=== PATIENT | male | born 1955 | race Caucasian/White ===

== ENCOUNTER 2016-05-02 17:46 | Emergency (ER) | payer OTHER ==
[2016-05-02] MEDS ORDERED: ONDANSETRON 4 MG TAB.RAPDIS PO ONE ×2 (18:27→22:28)
[2016-05-02] MEDS ORDERED: ASPIRIN 81 MG TABLET, CHEWABLE PO ONE (18:28)
--- NOTE | 2016-05-02 18:29 | ER Document Report ---
ED Medical Screen (RME) - General Stated Complaint: VOMITING Mode of Arrival: Wheelchair Information source: Patient Notes: Patient complains of dizziness and palpitations that started early this afternoon. Patient reports nausea and vomiting times numerous episodes. Patient states while waiting in the lobby he started to develop midsternal chest pain. Patient additionally reports generalized abdominal tenderness. hx: Diabetes, hypertension, gout, MS I have greeted and performed a rapid initial assessment of this patient. A comprehensive ED assessment and evaluation of the patient, analysis of test results and completion of the medical decision making process will be conducted by additional ED providers. TRAVEL OUTSIDE OF THE [place] IN LAST 30 DAYS: No - Related Data Allergies/Adverse Reactions: oxycodone Adverse Reaction (Severe, Verified 05/02/16 18:26) addiction codeine Adverse Reaction (Verified 05/02/16 18:26) Abnormal behavior Past Medical History - Past Medical History Cardiac Medical History: Reports: Hx Hypertension Endocrine Medical History: Reports: Hx Diabetes Mellitus Type 2 Psychiatric Medical History: Denies: Hx Depression Physical Exam - Vital signs Vitals: Temp Pulse Resp BP Pulse Ox 98.3 F 84 16 146/65 H 96 05/02/16 17:57 05/02/16 17:57 05/02/16 17:57 05/02/16 17:57 05/02/16 17:57 - Cardiovascular Rhythm: Regular Heart sounds: S1 appreciated, S2 appreciated Course - Vital Signs Vital signs: Temp Pulse Resp BP Pulse Ox 98.3 F 84 16 146/65 H 96 05/02/16 17:57 05/02/16 17:57 05/02/16 17:57 05/02/16 17:57 05/02/16 17:57
[2016-05-02 19:05] LABS: ABSOLUTE LYMPHOCYTES (AUTO) 1.7 10^3/uL (0.5-4.7); ABSOLUTE MONOCYTES (AUTO) 0.8 10^3/uL (0.1-1.4); ABSOLUTE NEUT (AUTO) 9.2 10^3/uL (1.7-8.2); BASOPHILS % (AUTO) 0.2 % (0-2); EOSINOPHILS % (AUTO) 0.3 % (0-6); HEMATOCRIT 38.5 % (37.9-51.0); HEMOGLOBIN 13.1 g/dL (13.5-17.0); HGB HCT DIFFERENCE 0.8; LYMPHOCYTES % (AUTO) 14.3 % (13-45); MEAN CORPUSCULAR HEMOGLOBIN 30.3 pg (27.0-33.4); MEAN CORPUSCULAR VOLUME 89 fl (80-97); RED BLOOD COUNT 4.32 10^6/uL (4.35-5.55); RED CELL DISTRIBUTION WIDTH 14.3 % (11.5-14.0); SEGMENTED NEUTROPHILS % (AUTO) 78.2 % (42-78); WHITE BLOOD COUNT 11.7 10^3/uL (4.0-10.5)
[2016-05-02 19:28] LABS: ALANINE AMINOTRANSFERASE 68 U/L (21-72); ALKALINE PHOSPHATASE 94 U/L (38-126); ANION GAP 15 (5-19); ASPARTATE AMINO TRANSFERASE 41 U/L (17-59); BILIRUBIN,TOTAL 0.8 mg/dL (0.2-1.3); BLOOD UREA NITROGEN 21 mg/dL (7-20); CALCIUM 10.6 mg/dL (8.4-10.2); CARBON DIOXIDE 30 mmol/L (22-30); CHLORIDE 100 mmol/L (98-107); CREATINE KINASE 164 U/L (55-170); CREATININE RESULT 0.55 mg/dL (0.52-1.25); GLUCOSE 123 mg/dL (75-110); LIPASE 108.8 U/L (23-300); MAGNESIUM 1.6 mg/dL (1.6-2.3); POTASSIUM 4.4 mmol/L (3.6-5.0); TOTAL PROTEIN 8.3 g/dL (6.3-8.2)
[2016-05-02 19:40] LABS: CREATINE KINASE MB 1.04 ng/mL (<4.55); TROPONIN I < 0.012 ng/mL
--- NOTE | 2016-05-02 22:52 | EKG REPORT ---
SEVERITY:- BORDERLINE ECG - SINUS RHYTHM BORDERLINE T ABNORMALITIES, ANT-LAT LEADS : Confirmed by: Pedro Caraballo 02-May-2016 22:50:31
--- NOTE | 2016-05-02 22:58 | ER Document Report ---
ED General - General Chief Complaint: Dizziness Stated Complaint: VOMITING Mode of Arrival: Wheelchair Information source: Patient Notes: Patient presents to the emergency department with complaints of dizziness. Patient reports this morning he opened the front door and felt dizzy. He let dog out the back door and became very dizzy, he had to sit in the chair. He then went to bed, reports he started vomiting. He reports is not feeling well. Patient reports he has history of MS. He reports he has a history of being off balance and dizziness. He reports at first he diagnosed with vertigo before they diagnosed him with MS. Patient reports that when he was sitting in the waiting room he felt like his heart was racing. He denies fever or diarrhea. Denies trauma. Reports he still feels a little bit nauseated but is asking for some cold water. TRAVEL OUTSIDE OF THE [place] IN LAST 30 DAYS: No - HPI Onset: This morning Onset/Duration: Sudden Quality of pain: No pain Severity: None Associated symptoms: Vomiting Exacerbated by: Movement Relieved by: Denies Similar symptoms previously: Yes Recently seen / treated by doctor: No - Related Data Allergies/Adverse Reactions: oxycodone Adverse Reaction (Severe, Verified 05/02/16 18:26) addiction codeine Adverse Reaction (Verified 05/02/16 18:26) Abnormal behavior Past Medical History - General Information source: Patient - Social History Smoking Status: Former Smoker Chew tobacco use (# tins/day): No Frequency of alcohol use: None Drug Abuse: None Family History: Reviewed & Not Pertinent Patient has suicidal ideation: No Patient has homicidal ideation: No - Past Medical History Cardiac Medical History: Reports: Hx Hypertension Endocrine Medical History: Reports: Hx Diabetes Mellitus Type 2, Hx Hypothyroidism Renal/ Medical History: Denies: Hx Peritoneal Dialysis Musculoskeltal Medical History: Reports Hx Gout, Reports Hx Multiple Sclerosis Psychiatric Medical History: Denies: Hx Depression Past Surgical History: Reports: Hx Orthopedic Surgery Review of Systems - Review of Systems Notes: Review HPI for review of systems., All other systems negative Physical Exam - Vital signs Vitals: Temp Pulse Resp BP Pulse Ox 98.3 F 84 16 146/65 H 96 05/02/16 17:57 05/02/16 17:57 05/02/16 17:57 05/02/16 17:57 05/02/16 17:57 - Notes Notes: PHYSICAL EXAMINATION: GENERAL: nontoxic looking, anxious HEAD: Atraumatic, normocephalic. EYES: Pupils equal round and reactive to light, extraocular movements intact, sclera anicteric, conjunctiva are normal. ENT: nares patent, oropharynx clear without exudates. Moist mucous membranes. NECK: Normal range of motion, supple without lymphadenopathy LUNGS: CTAB and equal. No wheezes rales or rhonchi. HEART: Regular rate and rhythm without murmurs ABDOMEN: Soft, no tenderness. No guarding, no rebound EXTREMITIES: Normal range of motion, no pitting edema. No cyanosis. NEUROLOGICAL: Cranial nerves grossly intact. Normal sensory/motor exams. PSYCH: Normal mood, normal affect. SKIN: Warm, Dry, normal turgor, no rashes or lesions noted Course - Re-evaluation Re-evalutation: I have consulted the attending provider Dr Lr per [facility] guidelines, reviewed patient c/o, EKG, history reviewed. BUN 21, SP. [place] 1.028, advised IV fluids valium 05/03/16 02:02 Reports he feels much better. No further vomiting since arrival. Patient ambulated around the emergency department without complaints of dizziness. Denies chest pain, denies palpitations. negative CE, EKG SR. Patient ambulated around the ED without c/o dizziness. I consulted Dr Lr, she agrees with discharge. Patient was instructed on discharge. He was instructed to [facility]. He was also instructed to return to the emergency department for concerns chest pain return or vomiting. He verbalized understanding - Vital Signs Vital signs: Temp Pulse Resp BP Pulse Ox 98.6 F 78 16 147/59 H 95 05/03/16 02:22 05/03/16 02:22 05/03/16 02:22 05/03/16 02:22 05/03/16 02:22 - Laboratory Result Diagrams: 05/02/16 18:50 05/02/16 18:50 Laboratory results interpreted by me: 05/02/16 05/02/16 05/02/16 18:50 18:50 23:15 WBC 11.7 H RBC 4.32 L Hgb 13.1 L RDW 14.3 H Seg Neutrophils % 78.2 H Absolute Neutrophils 9.2 H BUN 21 H Glucose 123 H Calcium 10.6 H Total Protein 8.3 H Urine Ketones TRACE H - Diagnostic Test Radiology reviewed: Image reviewed, Reports reviewed - IMPRESSION: No significant interval change. No acute findings. Other findings as noted above - EKG Interpretation by Me EKG shows normal: Sinus rhythm - x 2 ekgs When compared to previous EKG there are: No significant change Discharge - Discharge Clinical Impression: Dizziness, Elevated blood pressure reading Vomiting Qualifiers: Vomiting type: unspecified Vomiting Intractability: non-intractable Nausea presence: unspecified Qualified Code(s): R11.10 - Vomiting, unspecified Condition: Stable Disposition: HOME, SELF-CARE Instructions: Antinausea Medication ([facility]), Dizziness ([facility]), Intravenous (IV) Fluids ([facility]), Vomiting ([facility]) Additional Instructions: *You have been evaluated for dizziness, nausea/vomiting *Take medication as prescribed for nausea *Ensure adequate fluid intake as discussed to prevent dehydrationone *[facility], within one week for recheck *Return to ED for worsening condition, changes, needs Forms: Elevated Blood Pressure
[2016-05-02 23:39] LABS: APPEARANCE,URINE SLIGHTLY-CLOUDY; BILIRUBIN,URINE NEGATIVE (NEGATIVE); GLUCOSE, URINE NEGATIVE (NEGATIVE); KETONES,URINE TRACE mg/dL (NEGATIVE); LEUKOCYTE ESTERASE,URINE NEGATIVE (NEGATIVE); NITRITE,URINE NEGATIVE (NEGATIVE); PROTEIN,URINE NEGATIVE (NEGATIVE); URINE SPECIFIC GRAVITY 1.028; UROBILINOGEN,URINE NEGATIVE mg/dL (<2.0)
[2016-05-02] MEDS ORDERED: MECLIZINE HCL 25 MG TABLET PO ONE (23:55)
[2016-05-02] MEDS ORDERED: DIAZEPAM 5 MG TABLET PO ONE (23:58)
[2016-05-03] MEDS ORDERED: NORMAL SALINE 1000 ML 1,000 ML IV ONE (00:13)
[2016-05-03] MEDS ORDERED: ONDANSETRON ODT 4 MG TAB (6 TAB/DSPK) PO PRN (02:05)
[2016-05-03 02:37] VITALS: BP 147/59
--- NOTE | 2016-05-03 09:37 | EKG REPORT ---
SEVERITY:- ABNORMAL ECG - SINUS RHYTHM NONSPECIFIC T ABNORMALITIES, LATERAL LEADS : Confirmed by: Pedro Caraballo 03-May-2016 09:37:03
== END 2016-05-03 02:40 | disposition home or self-care (01) ==
LOC: ER 17:46
DX: R42 Dizziness and giddiness (principal); R03.0 Elevated blood-pressure reading, without diagnosis of hypertension; R11.10 Vomiting, unspecified; G35 Multiple sclerosis; Z87.891 Personal history of nicotine dependence
CPT/HCPCS: 93005 ×2; 99284; 36415; 82553; 82550; 83690; 83735; 84443; 85025; 80053; 81001; 84484; 87804; 71020; 93010 ×2; S0119

== ENCOUNTER 2016-12-07 07:30 | Day surgery (SDC) | payer OTHER ==
[2016-12-07 08:17] LABS: HEMATOCRIT 35.4 % (37.9-51.0); HEMOGLOBIN 12.3 g/dL (13.5-17.0); HGB HCT DIFFERENCE 1.5; MEAN CORPUSCULAR HEMOGLOBIN 31.2 pg (27.0-33.4); MEAN CORPUSCULAR HGB CONC 34.7 g/dL (32.0-36.0); MEAN CORPUSCULAR VOLUME 90 fl (80-97); RED BLOOD COUNT 3.94 10^6/uL (4.35-5.55); RED CELL DISTRIBUTION WIDTH 14.1 % (11.5-14.0); WHITE BLOOD COUNT 10.3 10^3/uL (4.0-10.5)
[2016-12-07 08:33] LABS: BLOOD UREA NITROGEN 25 mg/dL (7-20); CREATININE RESULT 0.74 mg/dL (0.52-1.25); GLUCOSE 145 mg/dL (75-110); POTASSIUM 4.5 mmol/L (3.6-5.0)
[2016-12-07 09:25] LABS: PROTHROMBIN TIME 12.9 SEC (11.4-15.4)
[2016-12-07 09:26] LABS: PARTIAL THROMBOPLASTIN TIME 36.5 SEC (23.5-35.8)
--- NOTE | 2016-12-07 11:14 | RADIOLOGY REPORT (SQ) ---
EXAM DESCRIPTION: LUMBAR PUNCTURE; FLUORO/NEEDLE PLACEMENT/SPINE COMPLETED DATE/TIME: 12/07/2016 10:50 am REASON FOR STUDY: MS G35 MULTIPLE SCLEROSIS COMPARISON: None. FLUOROSCOPY TIME: 9 seconds 1 digital radiographic image saved to PACS. TECHNIQUE: Fluoroscopic guided lumbar puncture. LIMITATIONS: None. PROCEDURE: After written consent and assessment were obtained, the patient was brought into the fluo roscopy room and placed prone on the table. The patient's lower back was prepped in a sterile fashio n and an entry site was selected under live fluoroscopic guidance. The entry site was anesthetized wi th 4.5 mL of 1% lidocaine. A 20 gauge needle was advanced through the skin and into the thecal sac at the right paracentral L2-3 level. After approximately 8 ml was drained, the needle was removed and a sterile bandage was placed of the site. Specimens were sent to the lab for testing. A fluoroscopic spot image was saved to PACS confirming level access. FINDINGS: Clear CSF Opening pressure 17 cm of water. Closing pressure 13 cm of water. IMPRESSION: Lumbar puncture under fluoroscopy. No immediate complication. COMMENT: Patient medication list reviewed: Yes- Quality ID# [id number]:Eligible professional attests to doc umenting in the medical record they obtained, updated, or reviewed the patient's current medications. . Quality ID 145: Final reports for procedures using fluoroscopy that document radiation exposure jossie mohan, or exposure time and number of fluorographic images (if radiation exposure indices are not avail able) TECHNICAL DOCUMENTATION: JOB ID: [id number] [employer]- All Rights Reserved
[2016-12-07 12:08] LABS: GLUCOSE,CSF 79 mg/dL (40-70)
[2016-12-07 12:23] LABS: APPEARANCE ALL TUBES CLEAR
[2016-12-07 12:24] LABS: RBC AVERAGE 117.5; RBC DILUENT USED NONE USED; RBC SIDE 1 124; RBC SIDE 2 111
[2016-12-07 12:25] LABS: RBC DILUTION FACTOR 1
[2016-12-07 12:26] LABS: TOTAL RBC SQUARES COUNTED 75
[2016-12-07 12:30] LABS: WHITE BLOOD CELL,CSF 5 /uL (0-5)
[2016-12-07 12:40] VITALS: BP 124/63
[2016-12-11 16:39] LABS: ALBUMIN CSF 48 mg/dL (11-48); ALBUMIN SERUM 4.2 g/dL (3.6-4.8); CSF IGG INDEX 0.5 (0.0-0.7); IGG SYNTHESIS RATE CSF -2.6 mg/day (-9.9 TO +3.3); IGG/ALBUMIN RATIO CSF 0.09 (0.00-0.25); IMMUNOGLOBULIN G CSF 4.5 mg/dL (0.0-8.6); IMMUNOGLOBULIN G SERUM 874 mg/dL (700-1600)
[2016-12-12 08:08] LABS: CSF/SERUM ALBUMIN INDEX 11 (0-8)
== END 2016-12-07 12:35 | disposition home or self-care (01) ==
LOC: RAD 07:30
PROVIDERS: ATTEND Specialist
PROC: 009U3ZX Drainage of Spinal Canal, Percutaneous Approach, Diagnostic (ICD-10-PCS; principal; 2016-12-07)
DX: G35 Multiple sclerosis (principal)
CPT/HCPCS: 36415; 62270; 77003; 82565; 82784; 82945; 82947; 83916; 84132; 84157; 84520; 85027; 85610; 85730; 87070; 87205; 89050

== ENCOUNTER 2017-05-17 11:26 | Inpatient (IN) | payer OTHER ==
--- NOTE | 2017-05-17 13:15 | ER Document Report ---
ED Medical Screen (RME) - General Chief Complaint: Weakness Stated Complaint: WEAKNESS Time Seen by Provider: 05/17/17 13:11 Mode of Arrival: Wheelchair Information source: Patient Notes: 61-year-old male history of multiple sclerosis presents with complaints of weakness in the lower extremities inability to ambulate over the past few days patient does have a mechanical wheelchair but notes he has fallen out of it recently I have greeted and performed a rapid initial assessment of this patient. A comprehensive ED assessment and evaluation of the patient, analysis of test results and completion of the medical decision making process will be conducted by additional ED providers. PHYSICAL EXAMINATION: GENERAL: Well-appearing, well-nourished and in no acute distress. HEAD: Atraumatic, normocephalic. EYES: Pupils equal round extraocular movements intact, conjunctiva are normal. ENT: Nares patent NECK: Normal range of motion LUNGS: No respiratory distress Musculoskeletal: Normal range of motion NEUROLOGICAL: Normal speech, PSYCH: Normal mood, normal affect. SKIN: Warm, Dry, normal turgor, no rashes or lesions noted. TRAVEL OUTSIDE OF THE [place] IN LAST 30 DAYS: No - Related Data Allergies/Adverse Reactions: oxycodone Adverse Reaction (Severe, Verified 05/17/17 13:05) addiction codeine Adverse Reaction (Verified 05/17/17 13:05) Abnormal behavior Past Medical History - Social History Chew tobacco use (# tins/day): No Frequency of alcohol use: None Drug Abuse: None - Past Medical History Cardiac Medical History: Reports: Hx Hypertension - ON MEDS Denies: Hx Coronary Artery Disease, Hx Heart Attack Pulmonary Medical History: Reports: Hx COPD - POSSIBLY, PT UNSURE Denies: Hx Asthma, Hx Bronchitis, Hx Pneumonia Neurological Medical History: Denies: Hx Cerebrovascular Accident, Hx Seizures Endocrine Medical History: Reports: Hx Diabetes Mellitus Type 2, Hx Hypothyroidism Renal/ Medical History: Denies: Hx Peritoneal Dialysis Musculoskeltal Medical History: Reports Hx Arthritis - NECK, Reports Hx Gout, Reports Hx Multiple Sclerosis Psychiatric Medical History: Denies: Hx Depression Past Surgical History: Reports: Hx Orthopedic Surgery - Immunizations Hx Diphtheria, Pertussis, Tetanus Vaccination: No History of Influenza Vaccine for 11/2016 - 04/2017 Season: No Physical Exam - Vital signs Vitals: Temp Pulse BP Pulse Ox 98.2 F 74 107/60 92 05/17/17 11:41 05/17/17 11:41 05/17/17 11:41 05/17/17 11:41 Course - Vital Signs Vital signs: Temp Pulse Resp BP Pulse Ox 98.2 F 74 107/60 92 05/17/17 11:41 05/17/17 11:41 05/17/17 11:41 05/17/17 11:41
[2017-05-17 13:46] LABS: ABSOLUTE BASOPHILS # (AUTO) 0.1 10^3/uL (0.0-0.2); ABSOLUTE EOSINOPHILS # (AUTO) 0.1 10^3/uL (0.0-0.6); ABSOLUTE LYMPHOCYTES (AUTO) 2.2 10^3/uL (0.5-4.7); ABSOLUTE NEUT (AUTO) 9.8 10^3/uL (1.7-8.2); BASOPHILS % (AUTO) 0.4 % (0-2); EOSINOPHILS % (AUTO) 0.7 % (0-6); HEMATOCRIT 39.4 % (37.9-51.0); HEMOGLOBIN 13.3 g/dL (13.5-17.0); LYMPHOCYTES % (AUTO) 16.8 % (13-45); MEAN CORPUSCULAR HEMOGLOBIN 30.2 pg (27.0-33.4); MEAN CORPUSCULAR HGB CONC 33.7 g/dL (32.0-36.0); MEAN CORPUSCULAR VOLUME 90 fl (80-97); MONOCYTES % (AUTO) 7.4 % (3-13); PLATELET COUNT 373 10^3/uL (150-450); RED CELL DISTRIBUTION WIDTH 14.5 % (11.5-14.0); SEGMENTED NEUTROPHILS % (AUTO) 74.7 % (42-78); TOTAL CELLS COUNTED % (AUTO) 100 %; WHITE BLOOD COUNT 13.1 10^3/uL (4.0-10.5)
[2017-05-17 14:12] LABS: ALANINE AMINOTRANSFERASE 45 U/L (21-72); ALBUMIN 5.1 g/dL (3.5-5.0); ALKALINE PHOSPHATASE 99 U/L (38-126); ANION GAP 13 (5-19); ASPARTATE AMINO TRANSFERASE 30 U/L (17-59); BILIRUBIN,DIRECT 0.5 mg/dL (0.0-0.4); BILIRUBIN,TOTAL 0.6 mg/dL (0.2-1.3); BLOOD UREA NITROGEN 29 mg/dL (7-20); CALCIUM 10.6 mg/dL (8.4-10.2); CARBON DIOXIDE 31 mmol/L (22-30); CHLORIDE 99 mmol/L (98-107); GLUCOSE 152 mg/dL (75-110); POTASSIUM 5.1 mmol/L (3.6-5.0); SODIUM 143.3 mmol/L (137-145); TOTAL PROTEIN 8.8 g/dL (6.3-8.2)
--- NOTE | 2017-05-17 15:50 | RADIOLOGY REPORT (SQ) ---
EXAM DESCRIPTION: KNEE RIGHT 3 VIEWS COMPLETED DATE/TIME: 05/17/2017 3:42 pm REASON FOR STUDY: FALL, PAIN COMPARISON: None. NUMBER OF VIEWS: Three views. TECHNIQUE: AP, lateral, and sunrise patella radiographic images acquired of the right knee. LIMITATIONS: None. FINDINGS: MINERALIZATION: Normal. BONES: No acute fracture or dislocation. No worrisome bone lesions. JOINT: Meniscal calcifications are present. There are tiny posterior spurs on the patella. There is no significant joint effusion. SOFT TISSUES: No soft tissue swelling. No radio-opaque foreign body. OTHER: No other significant finding. IMPRESSION: Patellofemoral degenerative joint changes. TECHNICAL DOCUMENTATION: JOB ID: [id number] [employer]- All Rights Reserved Reading location - IP/workstation name: [email or web address]
--- NOTE | 2017-05-17 15:52 | RADIOLOGY REPORT (SQ) ---
EXAM DESCRIPTION: KNEE LEFT 3 VIEWS COMPLETED DATE/TIME: 05/17/2017 3:42 pm REASON FOR STUDY: FALL, PAIN COMPARISON: None. NUMBER OF VIEWS: Three views. TECHNIQUE: AP, lateral, and sunrise patella radiographic images acquired of the left knee. LIMITATIONS: None. FINDINGS: MINERALIZATION: Normal. BONES: No acute fracture or dislocation. No worrisome bone lesions. JOINT: No effusion. SOFT TISSUES: No soft tissue swelling. No radio-opaque foreign body. OTHER: No other significant finding. IMPRESSION: NEGATIVE STUDY OF THE LEFT KNEE. NO RADIOGRAPHIC EVIDENCE OF ACUTE INJURY. TECHNICAL DOCUMENTATION: JOB ID: [id number] [employer]- All Rights Reserved Reading location - IP/workstation name: [email or web address]
[2017-05-17] MEDS ORDERED: METHYLPREDNISOLONE INJ 1000 MG VIAL IV ONE (15:55)
--- NOTE | 2017-05-17 15:59 | ER Document Report ---
ED Dizziness/Weakness - General Chief Complaint: Weakness Stated Complaint: WEAKNESS, REPEATED FALLS Time Seen by Provider: 05/17/17 13:11 Mode of Arrival: Wheelchair Information source: Patient TRAVEL OUTSIDE OF THE [place] IN LAST 30 DAYS: No - HPI Patient complains to provider of: Weakness, Other - "LEGS GIVE OUT" Onset: Other - SEVERAL DAYS Onset/Duration: Gradual Quality of pain: No pain - NOTHING UNUSUAL Severity: Moderate Context: Other - MULTIPLE SCLEROSIS, CHRONIC RELPSING Associated symptoms: Loss of sensation, Recent fall - MULTIPLE. denies: Almost fainted, Fainted, Headache, Nausea, Short of breath, Vertigo Baseline gait: Uses a cane, Uses a walker, Walks only w/ assistance - HAS POWER CHAIR. - Related Data Allergies/Adverse Reactions: oxycodone Adverse Reaction (Severe, Verified 05/17/17 13:05) addiction codeine Adverse Reaction (Verified 05/17/17 13:05) Abnormal behavior Past Medical History - General Information source: Patient - Social History Smoking Status: Former Smoker Chew tobacco use (# tins/day): No Frequency of alcohol use: None Drug Abuse: None Lives with: Alone - DAUGHTER LIVES NEARBY Family History: Reviewed & Not Pertinent Patient has suicidal ideation: No Patient has homicidal ideation: No - Past Medical History Cardiac Medical History: Reports: Hx Hypertension - ON MEDS Denies: Hx Coronary Artery Disease, Hx Heart Attack Pulmonary Medical History: Reports: Hx COPD - POSSIBLY, PT UNSURE Denies: Hx Asthma, Hx Bronchitis, Hx Pneumonia Neurological Medical History: Reports: Other - MULTIPLE SCLEROSIS. Denies: Hx Cerebrovascular Accident, Hx Seizures Endocrine Medical History: Reports: Hx Diabetes Mellitus Type 2, Hx Hypothyroidism Renal/ Medical History: Reports: None. Denies: Hx Peritoneal Dialysis Malignancy Medical History: Reports None GI Medical History: Reports: None Musculoskeltal Medical History: Reports Hx Arthritis - NECK, Reports Hx Gout, Reports Hx Multiple Sclerosis Psychiatric Medical History: Reports: None Denies: Hx Depression Past Surgical History: Reports: Hx Orthopedic Surgery - Immunizations Hx Diphtheria, Pertussis, Tetanus Vaccination: No Review of Systems - Review of Systems Constitutional: Weakness EENT: No symptoms reported Cardiovascular: No symptoms reported Respiratory: No symptoms reported Gastrointestinal: No symptoms reported Genitourinary: No symptoms reported. denies: Incontinence, Retention Musculoskeletal: See HPI Skin: No symptoms reported Neurological/Psychological: See HPI Physical Exam - Vital signs Vitals: Temp Pulse BP Pulse Ox 98.2 F 74 107/60 92 05/17/17 11:41 05/17/17 11:41 05/17/17 11:41 05/17/17 11:41 Interpretation: Normal - General General appearance: Appears well, Alert In distress: None - HEENT Head: Normocephalic Eyes: Normal Conjunctiva: Normal Ears: Normal Nasal: Normal Mouth/Lips: Normal Mucous membranes: Normal - Respiratory Respiratory status: No respiratory distress Breath sounds: Normal - Cardiovascular Rhythm: Regular Heart sounds: Normal auscultation Murmur: No - Abdominal Inspection: Obese Distension: No distension - Extremities General upper extremity: Normal inspection General lower extremity: Normal inspection Knee: Tender - DIFFUSELY, MORE OVER PATELLA, WORSE ON RIGHT, Patellar tendon intact. No: Drawer's test instability, Instability, Joint effusion, Laxity with valgus stress, Laxity with varus stress - Neurological Neuro grossly intact: Yes Cognition: Normal Orientation: AAOx4 - Psychological Associated symptoms: Normal affect, Normal mood - Skin Skin Temperature: Warm Skin Moisture: Dry Skin Color: Normal Skin Turgor: Elastic Course - Vital Signs Vital signs: Temp Pulse Resp BP Pulse Ox 98.2 F 66 16 123/76 98 05/17/17 16:56 05/17/17 16:56 05/17/17 16:56 05/17/17 16:56 05/17/17 16:56 - Laboratory Result Diagrams: 05/17/17 13:30 05/17/17 13:30 Laboratory results interpreted by me: 05/17/17 05/17/17 05/17/17 13:30 13:30 13:30 WBC 13.1 H Hgb 13.3 L RDW 14.5 H Absolute Neutrophils 9.8 H ESR 99 H Potassium 5.1 H Carbon Dioxide 31 H BUN 29 H Glucose 152 H Calcium 10.6 H Direct Bilirubin 0.5 H Total Protein 8.8 H Albumin 5.1 H - Diagnostic Test Radiology reviewed: Image reviewed, Reports reviewed - Consults DR. HEMPHILL Time consulted: 17:32 Consulted provider: will come to ER Discharge - Discharge Clinical Impression: Multiple sclerosis exacerbation, Diabetes mellitus type 2 in obese Fall at home Qualifiers: Encounter type: initial encounter Qualified Code(s): W19.XXXA - Unspecified fall, initial encounter; Y92.009 - Unspecified place in unspecified non- institutional (private) residence as the place of occurrence of the external cause; Y92.009 - Unspecified place in unspecified non-institutional (private) residence as the place of occurrence of the external cause Contusion of knee Qualifiers: Encounter type: initial encounter Laterality: unspecified laterality Qualified Code(s): S80.00XA - Contusion of unspecified knee, initial encounter Disposition: ADMITTED INPATIENT Admitting Provider: Hospitalist Unit Admitted: Telemetry
[2017-05-17 17:10] LABS: APPEARANCE,URINE SLIGHTLY-CLOUDY; BILIRUBIN,URINE NEGATIVE (NEGATIVE); COLOR,URINE YELLOW; GLUCOSE, URINE NEGATIVE (NEGATIVE); KETONES,URINE NEGATIVE (NEGATIVE); LEUKOCYTE ESTERASE,URINE NEGATIVE (NEGATIVE); NITRITE,URINE NEGATIVE (NEGATIVE); PROTEIN,URINE NEGATIVE (NEGATIVE); URINE SPECIFIC GRAVITY 1.024; UROBILINOGEN,URINE NEGATIVE mg/dL (<2.0)
[2017-05-17] MEDS ORDERED: ACETAMINOPHEN 325 MG TABLET PO PRN (17:53)
[2017-05-17] MEDS ORDERED: ONDANSETRON HCL INJ/PF 4 MG/2 ML SDV IV PRN (17:53)
[2017-05-17] MEDS ORDERED: GLUCAGON,HUMAN RECOMB 1 MG INJ IM PRN (17:58)
[2017-05-17] MEDS ORDERED: DEXTROSE 50%-WATER 25 GM/50 ML DISP.SYRIN IV PRN ×2 (17:58)
[2017-05-17] MEDS ORDERED: DEXTROSE 40% GEL 15 GM TUBE PO PRN ×2 (17:58)
--- NOTE | 2017-05-17 18:14 | PDOC H&P ---
History of Present Illness Admission Date/PCP: 05/17/2017 Patient complains of: Falling History of Present Illness: NIMCO WALKER is a 61 year old male presents to hospital with complaint of falling. Patient states he has been weak for the last few days. Patient states that he does have MS and feels as though he is potentially having a flare. Patient states he has noticed that his vision has changed he has had some difficulty with speaking. Patient states that his daughter has been noticing just with speech. Patient reports that he has been falling quite a bit at home. Patient states he has fallen 8 times. Patient states that this is abnormal for him. Past Medical History Cardiac Medical History: Reports: Hypertension - ON MEDS Denies: Coronary Artery Disease, Myocardial Infarction Pulmonary Medical History: Reports: Chronic Obstructive Pulmonary Disease (COPD ) - POSSIBLY, PT UNSURE Denies: Asthma, Bronchitis, Pneumonia Neurological Medical History: Reports: Other - MULTIPLE SCLEROSIS Denies: Seizures Endocrine Medical History: Reports: Diabetes Mellitus Type 2, Hypothyroidism Renal/ Medical History: Reports: None Malignancy Medical History: Reports: None GI Medical History: Reports: None Musculoskeltal Medical History: Reports: Arthritis - NECK, Gout Psychiatric Medical History: Reports: None Denies: Depression Hematology: Reports: Anemia Past Surgical History Past Surgical History: Reports: Orthopedic Surgery Social History Lives with: Alone - DAUGHTER LIVES NEARBY Smoking Status: Former Smoker Frequency of Alcohol Use: Rare Hx Recreational Drug Use: No Drugs: None Hx Prescription Drug Abuse: No - Advance Directive Resuscitation Status: Full Code Family History Family History: Reviewed & Not Pertinent Parental Family History Reviewed: Yes Children Family History Reviewed: Yes Sibling(s) Family History Reviewed.: Yes Medication/Allergy Home Medications: Aspirin [Aspirin EC] 162 mg PO BID 09/28/15 Gabapentin 1,600 mg PO QHS 09/28/15 Hydrocodone/Acetaminophen [Hydrocodone-Acetamin 10-325 mg] 1 each PO QIDP PRN Lisinopril/Hydrochlorothiazide [Lisinopril-Hctz 20-12.5 mg Tab] 1 each PO DAILY 09/28/15 Metformin HCl 1,000 mg PO BID 09/28/15 Metoprolol Tartrate [Lopressor] 50 mg PO BID 09/28/15 Indomethacin [Indocin 50 mg Capsule] 50 mg PO Q8 PRN #30 capsule 10/03/15 Levothyroxine Sodium [Synthroid 0.15 mg Tablet] 0.15 mg PO DAILY@0600 #30 tablet 10/03/15 Methocarbamol 1,500 mg PO QHS 12/06/16 Allergies/Adverse Reactions: oxycodone Adverse Reaction (Severe, Verified 05/17/17 13:05) addiction codeine Adverse Reaction (Verified 05/17/17 13:05) Abnormal behavior Review of Systems Constitutional: PRESENT: weakness. ABSENT: chills, fever(s), headache(s), weight gain, weight loss Eyes: ABSENT: visual disturbances Ears: ABSENT: hearing changes Cardiovascular: ABSENT: chest pain, dyspnea on exertion, edema, orthropnea, palpitations Respiratory: ABSENT: cough, hemoptysis Gastrointestinal: ABSENT: abdominal pain, constipation, diarrhea, hematemesis, hematochezia, nausea, vomiting Genitourinary: ABSENT: dysuria, hematuria Musculoskeletal: PRESENT: muscle weakness Neurological: PRESENT: focal weakness, numbness, weakness Psychiatric: ABSENT: anxiety, depression, homidical ideation, suicidal ideation Endocrine: ABSENT: cold intolerance, heat intolerance, polydipsia, polyuria Hematologic/Lymphatic: ABSENT: easy bleeding, easy bruising Physical Exam Vital Signs: Temp Pulse Resp BP Pulse Ox 98.2 F 66 16 123/76 98 05/17/17 16:56 05/17/17 16:56 05/17/17 16:56 05/17/17 16:56 05/17/17 16:56 Intake & Output 05/16/17 05/17/17 05/18/17 06:59 06:59 06:59 Weight 113.398 kg General appearance: PRESENT: no acute distress, morbidly obese, well-developed, well-nourished Head exam: PRESENT: atraumatic, normocephalic Eye exam: PRESENT: conjunctiva pink, EOMI. ABSENT: scleral icterus Ear exam: PRESENT: normal external ear exam Mouth exam: PRESENT: moist, tongue midline Neck exam: ABSENT: carotid bruit, JVD, lymphadenopathy, thyromegaly Respiratory exam: PRESENT: clear to auscultation gary. ABSENT: rales, rhonchi, wheezes Cardiovascular exam: PRESENT: RRR. ABSENT: diastolic murmur, rubs, systolic murmur Pulses: PRESENT: normal dorsalis pedis pul Vascular exam: PRESENT: normal capillary refill GI/Abdominal exam: PRESENT: normal bowel sounds, soft. ABSENT: distended, guarding, mass, organolmegaly, rebound, tenderness Rectal exam: PRESENT: deferred Extremities exam: PRESENT: full ROM. ABSENT: calf tenderness, clubbing, pedal edema Musculoskeletal exam: PRESENT: full ROM, other - + bilateral knee tenderness to palpation. Neurological exam: PRESENT: alert, awake, oriented to person, oriented to place , oriented to time, oriented to situation, CN II-XII grossly intact. ABSENT: motor sensory deficit Psychiatric exam: PRESENT: appropriate affect, normal mood. ABSENT: homicidal ideation, suicidal ideation Skin exam: PRESENT: dry, intact, warm. ABSENT: cyanosis, rash Results Laboratory Results: 05/17/17 13:30 05/17/17 13:30 05/17/17 05/17/17 05/17/17 13:30 13:30 16:35 WBC 13.1 H RBC 4.40 Hgb 13.3 L Hct 39.4 MCV 90 MCH 30.2 MCHC 33.7 RDW 14.5 H Plt Count 373 Seg Neutrophils % 74.7 Lymphocytes % 16.8 Monocytes % 7.4 Eosinophils % 0.7 Basophils % 0.4 Absolute Neutrophils 9.8 H Absolute Lymphocytes 2.2 Absolute Monocytes 1.0 Absolute Eosinophils 0.1 Absolute Basophils 0.1 Sodium 143.3 Potassium 5.1 H Chloride 99 Carbon Dioxide 31 H Anion Gap 13 BUN 29 H Creatinine 0.78 Est GFR ( Amer) > 60 Est GFR (Non-Af Amer) > 60 Glucose 152 H Calcium 10.6 H Total Bilirubin 0.6 AST 30 ALT 45 Alkaline Phosphatase 99 Total Protein 8.8 H Albumin 5.1 H Urine Color YELLOW Urine Appearance SLIGHTLY-CLOUDY Urine pH 6.0 Ur Specific [place] 1.024 Urine Protein NEGATIVE Urine Glucose (UA) NEGATIVE Urine Ketones NEGATIVE Urine Blood NEGATIVE Urine Nitrite NEGATIVE Ur Leukocyte Esterase NEGATIVE Urine WBC (Auto) 3 Urine RBC (Auto) 3 Impressions: Knee X-Ray 05/17/17 14:49 IMPRESSION: NEGATIVE STUDY OF THE LEFT KNEE. NO RADIOGRAPHIC EVIDENCE OF ACUTE INJURY. Assessment & Plan - Diagnosis (1) Multiple sclerosis Is this a current diagnosis for this admission?: Yes Plan: Presumed acute MS flare: We will place patient on 1000mg of methylprednisolone. Will obtain MRI of brain with contrast. (2) Debility Is this a current diagnosis for this admission?: Yes Plan: Most likely related to MS: We will have PT OT evaluate patient and assess needs for dyspnea home. (3) Fall Is this a current diagnosis for this admission?: Yes Plan: We will have PT OT evaluate patient and needs for home. (4) Diabetes mellitus type 2 in obese Is this a current diagnosis for this admission?: Yes Plan: We will place patient on sliding scale insulin. Will check hemoglobin A1c. (5) HTN (hypertension) Is this a current diagnosis for this admission?: Yes Plan: We will resume home medications once medications have been verified. (6) Hypothyroid Is this a current diagnosis for this admission?: Yes Plan: We will continue Synthroid once medications have been verified. (7) Knee pain, bilateral Qualifiers: Chronicity: acute Qualified Code(s): M25.561 - Pain in right knee; M25.562 - Pain in left knee; M25.562 - Pain in left knee Is this a current diagnosis for this admission?: Yes Plan: Secondary to falls: Patient has had x-rays of knees that demonstrate no evidence of fracture. Will provide supportive care for now. (8) Morbid obesity Is this a current diagnosis for this admission?: Yes Plan: Encourage dietary changes (9) DVT prophylaxis Is this a current diagnosis for this admission?: Yes Plan: SCDs - Time Time Spent: 30 to 50 Minutes
--- NOTE | 2017-05-17 18:43 | RADIOLOGY REPORT (SQ) ---
EXAM DESCRIPTION: CT HEAD WITHOUT COMPLETED DATE/TIME: 05/17/2017 6:31 pm REASON FOR STUDY: head trauma COMPARISON: None. TECHNIQUE: Axial images acquired through the brain without intravenous contrast. Images reviewed wi th bone, brain and subdural windows. Images stored on PACS. All CT scanners at this facility use dose modulation, iterative reconstruction, and/or weight based d osing when appropriate to reduce radiation dose to as low as reasonably achievable (ALARA). [facility]: Dose Right [facility]: CareDose [facility]: Dose Right [facility]: Teradose 4D [facility]: SozializeMe RADIATION DOSE: CT Rad equipment meets quality standard of care and radiation dose reduction techniq ues were employed. CTDIvol: 64.6 mGy. DLP: 1163 mGy-cm. mGy. LIMITATIONS: None. FINDINGS: VENTRICLES: Normal size and contour. CEREBRUM: No masses. No hemorrhage. No midline shift. No evidence for acute infarction. Normal gra y/white matter differentiation. No areas of low density in the white matter. CEREBELLUM: No masses. No hemorrhage. No alteration of density. No evidence for acute infarction. EXTRAAXIAL SPACES: No fluid collections. No masses. ORBITS AND GLOBE: No intra- or extraconal masses. Normal contour of globe without masses. CALVARIUM: No fracture. PARANASAL SINUSES: No fluid or mucosal thickening. SOFT TISSUES: No mass or hematoma. OTHER: No other significant finding. IMPRESSION: NORMAL BRAIN CT WITHOUT CONTRAST. EVIDENCE OF ACUTE STROKE: NO. COMMENT: Quality ID # [id number]: Final reports with documentation of one or more dose reduction techniques (e.g., Automated exposure control, adjustment of the mA and/or kV according to patient size, use of iterative reconstruction technique) TECHNICAL DOCUMENTATION: JOB ID: [id number] [employer]- All Rights Reserved Reading location - IP/workstation name: [email or web address]
[2017-05-17] MEDS: RINGERS SOLUTION,LACTATED 1,000 ML IV PRN (19:26)
[2017-05-17] MEDS ORDERED: GABAPENTIN 400 MG CAPSULE PO ONE (22:45)
[2017-05-17] MEDS ORDERED: METHOCARBAMOL 500 MG TABLET PO ONE (22:45)
[2017-05-17] MEDS: HYDROCODONE/ACETAMINOPHEN 10-325 MG TABLET PO PRN (23:05)
[2017-05-18] MEDS: LANSOPRAZOLE 30 MG TAB.RAP.DR PO SCH (05:16)
[2017-05-18 07:34] LABS: ABSOLUTE LYMPHOCYTES (AUTO) 0.8 10^3/uL (0.5-4.7); ABSOLUTE MONOCYTES (AUTO) 0.1 10^3/uL (0.1-1.4); ABSOLUTE NEUT (AUTO) 6.6 10^3/uL (1.7-8.2); BASOPHILS % (AUTO) 0.2 % (0-2); HEMATOCRIT 35.5 % (37.9-51.0); HEMOGLOBIN 12.2 g/dL (13.5-17.0); LYMPHOCYTES % (AUTO) 10.8 % (13-45); MEAN CORPUSCULAR HEMOGLOBIN 30.5 pg (27.0-33.4); MEAN CORPUSCULAR HGB CONC 34.4 g/dL (32.0-36.0); MEAN CORPUSCULAR VOLUME 89 fl (80-97); MONOCYTES % (AUTO) 0.8 % (3-13); PLATELET COUNT 297 10^3/uL (150-450); RED BLOOD COUNT 3.99 10^6/uL (4.35-5.55); RED CELL DISTRIBUTION WIDTH 14.1 % (11.5-14.0); SEGMENTED NEUTROPHILS % (AUTO) 88.2 % (42-78); TOTAL CELLS COUNTED % (AUTO) 100 %; WHITE BLOOD COUNT 7.4 10^3/uL (4.0-10.5)
[2017-05-18 07:57] LABS: ALANINE AMINOTRANSFERASE 42 U/L (21-72); ALBUMIN 4.6 g/dL (3.5-5.0); ALKALINE PHOSPHATASE 96 U/L (38-126); ANION GAP 12 (5-19); ASPARTATE AMINO TRANSFERASE 21 U/L (17-59); BILIRUBIN,DIRECT 0.2 mg/dL (0.0-0.4); BILIRUBIN,TOTAL 0.4 mg/dL (0.2-1.3); BLOOD UREA NITROGEN 31 mg/dL (7-20); CALCIUM 10.5 mg/dL (8.4-10.2); CARBON DIOXIDE 31 mmol/L (22-30); CHLORIDE 97 mmol/L (98-107); GLUCOSE 293 mg/dL (75-110); POTASSIUM 4.9 mmol/L (3.6-5.0); SODIUM 140.1 mmol/L (137-145); TOTAL PROTEIN 7.6 g/dL (6.3-8.2); TRIGLYCERIDES 109 mg/dL (<150)
[2017-05-18] MEDS ORDERED: INSULIN GLARGINE,HUM.REC.ANLOG 300 UNIT/3 ML INSULN.PEN SUBCUT SCH (08:00)
[2017-05-18 08:08] LABS: DIRECT LDL 130 mg/dL (<100)
[2017-05-18 08:13] LABS: FREE T4 (FREE THYROXINE) 1.54 ng/dL (0.78-2.19)
[2017-05-18 08:27] LABS: THYROID STIMULATING HORMONE 1.26 uIU/mL (0.47-4.68)
[2017-05-18] MEDS: INSULIN LISPRO 100 UNIT/ML 3 ML VIAL SUBCUT PRN ×3 (09:45→18:58)
[2017-05-18] MEDS ORDERED: METHYLPREDNISOLONE SOD SUCC 1,000 MG in DEXTROSE 5%-WATER 100 ML IV SCH (10:00)
--- NOTE | 2017-05-18 14:22 | PDOC PROGRESS REPORT ---
Subjective Progress Note for:: 05/18/17 Subjective:: Patient is requesting to go to open MRI down the street because he has claustrophobia. Patient was told that that would not be possible. Patient was requesting to be able to get up out of bed however nursing states that patient is very unsafe with ambulating. Have requested that PT OT evaluate patient today. Is not currently complaining of left thigh pain Reason For Visit: MS EXACERBATION Physical Exam Vital Signs: Temp Pulse Resp BP Pulse Ox 98.6 F 108 H 17 150/75 H 96 05/18/17 11:29 05/18/17 11:29 05/18/17 11:29 05/18/17 11:29 05/18/17 11:29 Intake & Output 05/17/17 05/18/17 05/19/17 06:59 06:59 06:59 Intake Total 1550 Output Total 400 Balance 1150 Weight 113.3 kg General appearance: PRESENT: no acute distress, well-developed, well-nourished Head exam: PRESENT: atraumatic, normocephalic Eye exam: PRESENT: conjunctiva pink, EOMI. ABSENT: scleral icterus Ear exam: PRESENT: normal external ear exam Mouth exam: PRESENT: moist, tongue midline Neck exam: ABSENT: carotid bruit, JVD, lymphadenopathy, thyromegaly Respiratory exam: PRESENT: clear to auscultation gary. ABSENT: rales, rhonchi, wheezes Cardiovascular exam: PRESENT: RRR. ABSENT: diastolic murmur, rubs, systolic murmur Pulses: PRESENT: normal dorsalis pedis pul Vascular exam: PRESENT: normal capillary refill GI/Abdominal exam: PRESENT: normal bowel sounds, soft. ABSENT: distended, guarding, mass, organolmegaly, rebound, tenderness Rectal exam: PRESENT: deferred Extremities exam: PRESENT: full ROM. ABSENT: calf tenderness, clubbing, pedal edema Musculoskeletal exam: PRESENT: full ROM, other - left thigh tenderness Neurological exam: PRESENT: alert, awake, oriented to person, oriented to place , oriented to time, oriented to situation, CN II-XII grossly intact. ABSENT: motor sensory deficit Psychiatric exam: PRESENT: appropriate affect, normal mood. ABSENT: homicidal ideation, suicidal ideation Skin exam: PRESENT: dry, intact, warm. ABSENT: cyanosis, rash Results Laboratory Results: 05/18/17 06:39 05/18/17 06:39 05/18/17 05/18/17 05/18/17 06:39 06:39 06:39 WBC 7.4 RBC 3.99 L Hgb 12.2 L Hct 35.5 L MCV 89 MCH 30.5 MCHC 34.4 RDW 14.1 H Plt Count 297 Seg Neutrophils % 88.2 H Lymphocytes % 10.8 L Monocytes % 0.8 L Eosinophils % 0.0 Basophils % 0.2 Absolute Neutrophils 6.6 Absolute Lymphocytes 0.8 Absolute Monocytes 0.1 Absolute Eosinophils 0.0 Absolute Basophils 0.0 Sodium 140.1 Potassium 4.9 Chloride 97 L Carbon Dioxide 31 H Anion Gap 12 BUN 31 H Creatinine 0.68 Est GFR ( Amer) > 60 Est GFR (Non-Af Amer) > 60 Glucose 293 H Calcium 10.5 H Magnesium 1.8 Total Bilirubin 0.4 AST 21 ALT 42 Alkaline Phosphatase 96 Total Protein 7.6 Albumin 4.6 Triglycerides 109 Cholesterol 227.00 H LDL Cholesterol Direct 130 H VLDL Cholesterol 22.0 HDL Cholesterol 60 TSH 1.26 Free T4 1.54 Impressions: Head CT 05/17/17 00:00 IMPRESSION: NORMAL BRAIN CT WITHOUT CONTRAST. EVIDENCE OF ACUTE STROKE: NO. Knee X-Ray 05/17/17 14:49 IMPRESSION: NEGATIVE STUDY OF THE LEFT KNEE. NO RADIOGRAPHIC EVIDENCE OF ACUTE INJURY. Assessment & Plan - Diagnosis (1) Multiple sclerosis Is this a current diagnosis for this admission?: Yes Plan: Presumed acute MS flare: Will continue 1000mg of methylprednisolone. Pt refusing to do MRI due to claustrophobia. (2) Debility Is this a current diagnosis for this admission?: Yes Plan: Most likely related to MS: PT OT evaluate patient (3) Fall Is this a current diagnosis for this admission?: Yes Plan: PT OT evaluate patient and needs for home. (4) Diabetes mellitus type 2 in obese Is this a current diagnosis for this admission?: Yes Plan: Will continue sliding scale insulin. Hemoglobin A1c 6.7. Will increase Lantus 50 units SQ, place on Lispro 5 units SQ meals. (5) HTN (hypertension) Is this a current diagnosis for this admission?: Yes Plan: Will continue metoprolol, lisinopril, and HCTZ. (6) Hypothyroid Is this a current diagnosis for this admission?: Yes Plan: Synthroid 0.15mg PO Daily. (7) Knee pain, bilateral Qualifiers: Chronicity: acute Qualified Code(s): M25.561 - Pain in right knee; M25.562 - Pain in left knee; M25.562 - Pain in left knee Is this a current diagnosis for this admission?: Yes Plan: Secondary to falls: Patient has had x-rays of knees that demonstrate no evidence of fracture. (8) Morbid obesity Is this a current diagnosis for this admission?: Yes Plan: Encourage dietary changes (9) Hypercalcemia Is this a current diagnosis for this admission?: Yes Plan: Will continue IVFs. Will check in am. (10) DVT prophylaxis Is this a current diagnosis for this admission?: Yes Plan: SCDs - Time Time Spent with patient: 25-34 minutes - Pt changed to Observation.
[2017-05-18] MEDS: INSULIN GLARGINE,HUM.REC.ANLOG 300 UNIT/3 ML INSULN.PEN SUBCUT SCH (17:18)
[2017-05-18] MEDS: INSULIN LISPRO 100 UNIT/ML 3 ML VIAL SUBCUT SCH (18:58)
[2017-05-18] MEDS: METOPROLOL TARTRATE 50 MG TABLET PO SCH (19:00)
[2017-05-18] MEDS: GABAPENTIN 400 MG CAPSULE PO SCH (21:06)
[2017-05-18] MEDS: HYDROCODONE/ACETAMINOPHEN 10-325 MG TABLET PO PRN (21:07)
[2017-05-18] MEDS: METHOCARBAMOL 500 MG TABLET PO SCH (21:17)
[2017-05-18] MEDS: RINGERS SOLUTION,LACTATED 1,000 ML IV PRN (21:22)
[2017-05-19 05:31] LABS: ABSOLUTE LYMPHOCYTES (AUTO) 0.8 10^3/uL (0.5-4.7); ABSOLUTE MONOCYTES (AUTO) 0.5 10^3/uL (0.1-1.4); ABSOLUTE NEUT (AUTO) 12.4 10^3/uL (1.7-8.2); HEMATOCRIT 35.7 % (37.9-51.0); HEMOGLOBIN 11.8 g/dL (13.5-17.0); LYMPHOCYTES % (AUTO) 6.1 % (13-45); MEAN CORPUSCULAR HEMOGLOBIN 29.7 pg (27.0-33.4); MEAN CORPUSCULAR VOLUME 90 fl (80-97); MONOCYTES % (AUTO) 3.6 % (3-13); PLATELET COUNT 325 10^3/uL (150-450); RED BLOOD COUNT 3.96 10^6/uL (4.35-5.55); RED CELL DISTRIBUTION WIDTH 14.4 % (11.5-14.0); SEGMENTED NEUTROPHILS % (AUTO) 90.3 % (42-78); TOTAL CELLS COUNTED % (AUTO) 100 %; WHITE BLOOD COUNT 13.8 10^3/uL (4.0-10.5)
[2017-05-19 05:51] LABS: ALANINE AMINOTRANSFERASE 37 U/L (21-72); ALBUMIN 4.5 g/dL (3.5-5.0); ALKALINE PHOSPHATASE 87 U/L (38-126); ANION GAP 12 (5-19); ASPARTATE AMINO TRANSFERASE 17 U/L (17-59); BILIRUBIN,DIRECT 0.2 mg/dL (0.0-0.4); BILIRUBIN,TOTAL 0.3 mg/dL (0.2-1.3); BLOOD UREA NITROGEN 29 mg/dL (7-20); CALCIUM 10.6 mg/dL (8.4-10.2); CARBON DIOXIDE 30 mmol/L (22-30); CHLORIDE 99 mmol/L (98-107); GLUCOSE 329 mg/dL (75-110); SODIUM 140.5 mmol/L (137-145); TOTAL PROTEIN 7.5 g/dL (6.3-8.2)
[2017-05-19] MEDS: METOPROLOL TARTRATE 50 MG TABLET PO SCH ×2 (05:57→17:35)
[2017-05-19] MEDS: LEVOTHYROXINE SODIUM 0.15 MG TABLET PO SCH (05:58)
[2017-05-19] MEDS: LANSOPRAZOLE 30 MG TAB.RAP.DR PO SCH (05:58)
--- NOTE | 2017-05-19 09:30 | RADIOLOGY REPORT (SQ) ---
EXAM DESCRIPTION: FEMUR RIGHT COMPLETED DATE/TIME: 05/19/2017 9:16 am REASON FOR STUDY: pain in leg COMPARISON: Right femur two views same date NUMBER OF VIEWS: Two views. TECHNIQUE: Two radiographic images acquired of the right femur to include hip and knee in at least o ne projection. LIMITATIONS: None. FINDINGS: MINERALIZATION: Osteopenic BONES: No acute fracture. No worrisome bone lesions. SOFT TISSUES: No obvious swelling or foreign body. OTHER: Very mild right hip joint space narrowing. Right knee unremarkable. IMPRESSION: NEGATIVE STUDY OF THE RIGHT FEMUR. NO RADIOGRAPHIC EVIDENCE OF ACUTE INJURY. TECHNICAL DOCUMENTATION: JOB ID: [id number] [employer]- All Rights Reserved Reading location - IP/workstation name: [email or web address]
--- NOTE | 2017-05-19 09:30 | RADIOLOGY REPORT (SQ) ---
EXAM DESCRIPTION: FEMUR LEFT COMPLETED DATE/TIME: 05/19/2017 9:16 am REASON FOR STUDY: Leg pain COMPARISON: None. NUMBER OF VIEWS: Two views. TECHNIQUE: Two radiographic images acquired of the left femur to include hip and knee in at least on e projection. LIMITATIONS: None. FINDINGS: MINERALIZATION: Osteopenic BONES: No acute fracture. No worrisome bone lesions. SOFT TISSUES: No obvious swelling or foreign body. OTHER: Left hip and left knee are intact IMPRESSION: No acute fracture TECHNICAL DOCUMENTATION: JOB ID: [id number] [employer]- All Rights Reserved Reading location - IP/workstation name: [email or web address]
[2017-05-19] MEDS: INSULIN GLARGINE,HUM.REC.ANLOG 300 UNIT/3 ML INSULN.PEN SUBCUT SCH (09:39)
[2017-05-19] MEDS: INSULIN LISPRO 100 UNIT/ML 3 ML VIAL SUBCUT SCH ×3 (09:39→17:13)
[2017-05-19] MEDS: INSULIN LISPRO 100 UNIT/ML 3 ML VIAL SUBCUT PRN ×2 (09:39→12:00)
[2017-05-19] MEDS ORDERED: (PENDING PHARMACY ID) (Lisinopril/Hydrochlorothiazide [Lisinopril-Hctz 20-12.5 Mg Tab] 1 E PO SCH (10:00)
[2017-05-19] MEDS ORDERED: RINGERS SOLUTION,LACTATED 1,000 ML IV ONE (10:22)
--- NOTE | 2017-05-19 10:26 | PDOC PROGRESS REPORT ---
Subjective Progress Note for:: 05/19/17 Subjective:: Pt states that he is having leg pain. Pt states that he walked with PT yesterday. Pt also refused rehab. Reason For Visit: CONCERN FOR MS FLARE Physical Exam Vital Signs: Temp Pulse Resp BP Pulse Ox 98.1 F 61 20 124/47 L 98 05/19/17 07:00 05/19/17 07:00 05/19/17 07:00 05/19/17 07:00 05/19/17 07:00 Intake & Output 05/18/17 05/19/17 05/20/17 06:59 06:59 06:59 Intake Total 1550 1929 Output Total 400 1200 Balance 1150 729 Weight 113.3 kg 113.3 kg General appearance: PRESENT: no acute distress, morbidly obese, well-developed, well-nourished Head exam: PRESENT: atraumatic, normocephalic Eye exam: PRESENT: conjunctiva pink, EOMI. ABSENT: scleral icterus Ear exam: PRESENT: normal external ear exam Mouth exam: PRESENT: moist, tongue midline Neck exam: ABSENT: carotid bruit, JVD, lymphadenopathy, thyromegaly Respiratory exam: PRESENT: clear to auscultation gary. ABSENT: rales, rhonchi, wheezes Cardiovascular exam: PRESENT: RRR. ABSENT: diastolic murmur, rubs, systolic murmur Pulses: PRESENT: normal dorsalis pedis pul Vascular exam: PRESENT: normal capillary refill GI/Abdominal exam: PRESENT: normal bowel sounds, soft. ABSENT: distended, guarding, mass, organolmegaly, rebound, tenderness Rectal exam: PRESENT: deferred Extremities exam: PRESENT: other - Bilateral upper thigh tenderness to palpation Musculoskeletal exam: PRESENT: full ROM Neurological exam: PRESENT: alert, awake, oriented to person, oriented to place , oriented to time, oriented to situation, CN II-XII grossly intact. ABSENT: motor sensory deficit Psychiatric exam: PRESENT: appropriate affect, normal mood. ABSENT: homicidal ideation, suicidal ideation Skin exam: PRESENT: dry, intact, warm. ABSENT: cyanosis, rash Results Laboratory Results: 05/19/17 04:54 05/19/17 04:54 05/19/17 05/19/17 04:54 04:54 WBC 13.8 H RBC 3.96 L Hgb 11.8 L Hct 35.7 L MCV 90 MCH 29.7 MCHC 33.0 RDW 14.4 H Plt Count 325 Seg Neutrophils % 90.3 H Lymphocytes % 6.1 L Monocytes % 3.6 Eosinophils % 0.0 Basophils % 0.0 Absolute Neutrophils 12.4 H Absolute Lymphocytes 0.8 Absolute Monocytes 0.5 Absolute Eosinophils 0.0 Absolute Basophils 0.0 Sodium 140.5 Potassium 5.0 Chloride 99 Carbon Dioxide 30 Anion Gap 12 BUN 29 H Creatinine 0.77 Est GFR ( Amer) > 60 Est GFR (Non-Af Amer) > 60 Glucose 329 H Calcium 10.6 H Magnesium 1.9 Total Bilirubin 0.3 AST 17 ALT 37 Alkaline Phosphatase 87 Total Protein 7.5 Albumin 4.5 Impressions: Head CT 05/17/17 00:00 IMPRESSION: NORMAL BRAIN CT WITHOUT CONTRAST. EVIDENCE OF ACUTE STROKE: NO. Knee X-Ray 05/17/17 14:49 IMPRESSION: NEGATIVE STUDY OF THE LEFT KNEE. NO RADIOGRAPHIC EVIDENCE OF ACUTE INJURY. Femur X-Ray 05/19/17 00:00 IMPRESSION: No acute fracture Assessment & Plan - Diagnosis (1) Multiple sclerosis Is this a current diagnosis for this admission?: Yes Plan: Presumed acute MS flare: Will continue 1000mg of methylprednisolone. Pt with receive last dose tomorrow. Pt refusing to do MRI due to claustrophobia. (2) Debility Is this a current diagnosis for this admission?: Yes Plan: Most likely related to MS: PT OT evaluate patient (3) Fall Is this a current diagnosis for this admission?: Yes Plan: PT OT evaluate patient and needs for home. (4) Diabetes mellitus type 2 in obese Is this a current diagnosis for this admission?: Yes Plan: Will continue sliding scale insulin. Hemoglobin A1c 6.7. Will continue Lantus 50 units SQ. Will increase Lispro 8 units SQ meals. (5) HTN (hypertension) Is this a current diagnosis for this admission?: Yes Plan: Will continue metoprolol, lisinopril, and HCTZ. (6) Hypothyroid Is this a current diagnosis for this admission?: Yes Plan: Synthroid 0.15mg PO Daily. (7) Knee pain, bilateral Qualifiers: Chronicity: acute Qualified Code(s): M25.561 - Pain in right knee; M25.562 - Pain in left knee; M25.562 - Pain in left knee Is this a current diagnosis for this admission?: Yes Plan: Secondary to falls: Patient has had x-rays of knees that demonstrate no evidence of fracture. (8) Morbid obesity Is this a current diagnosis for this admission?: Yes Plan: Encourage dietary changes (9) Hypercalcemia Is this a current diagnosis for this admission?: Yes Plan: Will continue IVFs. Will give NS bolus. (10) DVT prophylaxis Is this a current diagnosis for this admission?: Yes Plan: SCDs - Time Time Spent with patient: 15-24 minutes
[2017-05-19] MEDS: HYDROCHLOROTHIAZIDE 12.5 MG CAPSULE PO SCH (11:31)
[2017-05-19] MEDS: LISINOPRIL 10 MG TABLET PO SCH (11:32)
[2017-05-19] MEDS: RINGERS SOLUTION,LACTATED 1,000 ML IV PRN (14:00)
[2017-05-19] MEDS: METHOCARBAMOL 500 MG TABLET PO SCH (22:15)
[2017-05-19] MEDS: HYDROCODONE/ACETAMINOPHEN 10-325 MG TABLET PO PRN (22:15)
[2017-05-19] MEDS: GABAPENTIN 400 MG CAPSULE PO SCH (22:15)
[2017-05-20] MEDS: LANSOPRAZOLE 30 MG TAB.RAP.DR PO SCH (06:05)
[2017-05-20] MEDS: LEVOTHYROXINE SODIUM 0.15 MG TABLET PO SCH (06:06)
[2017-05-20] MEDS: METOPROLOL TARTRATE 50 MG TABLET PO SCH (07:56)
[2017-05-20] MEDS: LISINOPRIL 10 MG TABLET PO SCH (10:06)
[2017-05-20] MEDS: INSULIN GLARGINE,HUM.REC.ANLOG 300 UNIT/3 ML INSULN.PEN SUBCUT SCH (10:06)
[2017-05-20] MEDS: HYDROCHLOROTHIAZIDE 12.5 MG CAPSULE PO SCH (10:06)
[2017-05-20] MEDS: RINGERS SOLUTION,LACTATED 1,000 ML IV PRN (10:07)
[2017-05-20] MEDS: INSULIN LISPRO 100 UNIT/ML 3 ML VIAL SUBCUT SCH ×2 (10:07→12:28)
--- NOTE | 2017-05-20 11:10 | PDOC DISCHARGE SUMMARY ---
General - Admit/Disc Date/PCP Admission Date/Primary Care Provider: 05/17/17 18:20 Discharge Date: 05/20/17 - Discharge Diagnosis (1) Multiple sclerosis Is this a current diagnosis for this admission?: Yes Summary: Pt received 3 days of IV steroids. Patient's neurologic symptoms have improved. Patient is able to ambulate with minimal assistance with walker. (2) Debility Is this a current diagnosis for this admission?: Yes Summary: She will be arranged for home PT OT (3) Fall Is this a current diagnosis for this admission?: Yes Summary: Pt will be arranged for home OT PT for discharge home. (4) Diabetes mellitus type 2 in obese Is this a current diagnosis for this admission?: Yes Summary: Patient will continue home medications. Patient was written for glucometer and lispro for sliding scale use. Will provide patient with our sliding scale protocol due to blood sugars being elevated in setting of steroids. (5) HTN (hypertension) Is this a current diagnosis for this admission?: Yes Summary: We will continue patient's home medications. (6) Hypothyroid Is this a current diagnosis for this admission?: Yes Summary: Continue Synthroid. (7) Knee pain, bilateral Is this a current diagnosis for this admission?: Yes Summary: Evidence of fractures of knees or thighs. (8) Morbid obesity Is this a current diagnosis for this admission?: Yes Summary: Encourage dietary changes and weight loss. (9) Hypercalcemia Is this a current diagnosis for this admission?: Yes Summary: Patient will need further evaluation as outpatient. Patient was found to have osteopenia on x-ray - Additional Information Resuscitation Status: Full Code Discharge Diet: Cardiac, Diabetic Discharge Activity: Activity As Tolerated Prescriptions: Insulin Lispro [Humalog Insulin (Lispro) 100 unit/mL] 0 - 12 unit SUBCUT ACBRKFSTP PRN #1 vial PRN Reason: Home Medications: Aspirin [Aspirin EC] 162 mg PO BID 09/28/15 Gabapentin 1,600 mg PO QHS 09/28/15 Hydrocodone/Acetaminophen [Hydrocodone-Acetamin 10-325 mg] 2 each PO QHS Lisinopril/Hydrochlorothiazide [Lisinopril-Hctz 20-12.5 mg Tab] 1 each PO DAILY 09/28/15 Metformin HCl 1,000 mg PO BID 09/28/15 Metoprolol Tartrate [Lopressor] 50 mg PO BID 09/28/15 Indomethacin [Indocin 50 mg Capsule] 50 mg PO Q8 PRN #30 capsule 10/03/15 Levothyroxine Sodium [Synthroid 0.15 mg Tablet] 0.15 mg PO DAILY@0600 #30 tablet 10/03/15 Methocarbamol 1,500 mg PO QHS 12/06/16 Insulin Lispro [Humalog Insulin (Lispro) 100 unit/mL] 0 - 12 unit SUBCUT ACBRKFSTP PRN #1 vial 05/20/17 History of Present Illness Patient complains of: Falls History of Present Illness: NIMCO WALKER is a 61 year old male presents to hospital with complaint of falling. Patient states he has been weak for the last few days. Patient states that he does have MS and feels as though he is potentially having a flare. Patient states he has noticed that his vision has changed he has had some difficulty with speaking. Patient states that his daughter has been noticing just with speech. Patient reports that he has been falling quite a bit at home. Patient states he has fallen 8 times. Patient states that this is abnormal for him. Hospital Course Hospital Course: Patient 58-year-old gentleman with history of MS that was admitted to our hospital due to concern for MS exacerbation. Patient was placed on IV steroids for 3 days and has demonstrated significant improvement. Patient has walked with physical therapy and has needed minimal assist. Patient was noted to have hyperglycemia in setting of diabetes type 2 and therefore was placed on scheduled insulin. Patient's blood sugars have been better controlled however for discharge patient was placed on sliding scale insulin with sliding scale protocol. Due to patient's debility will have PT OT evaluate patient at home. Patient refused MRI of brain to evaluate/confirm evidence of MS flare however patient has demonstrated improvement. Physical Exam Vital Signs: Temp Pulse Resp BP Pulse Ox 98.2 F 56 L 20 105/59 L 97 05/20/17 07:17 05/20/17 07:17 05/20/17 07:17 05/20/17 07:17 05/20/17 07:17 Intake & Output 05/19/17 05/20/17 05/21/17 06:59 06:59 06:59 Intake Total 1929 950 Output Total 1200 300 Balance 729 650 Weight 113.3 kg 100.4 kg General appearance: PRESENT: no acute distress, morbidly obese, well-developed, well-nourished Head exam: PRESENT: atraumatic, normocephalic Eye exam: PRESENT: conjunctiva pink, EOMI. ABSENT: scleral icterus Ear exam: PRESENT: normal external ear exam Mouth exam: PRESENT: moist, tongue midline Neck exam: ABSENT: carotid bruit, JVD, lymphadenopathy, thyromegaly Respiratory exam: PRESENT: clear to auscultation gary. ABSENT: rales, rhonchi, wheezes Cardiovascular exam: PRESENT: RRR. ABSENT: diastolic murmur, rubs, systolic murmur Pulses: PRESENT: normal dorsalis pedis pul Vascular exam: PRESENT: normal capillary refill GI/Abdominal exam: PRESENT: normal bowel sounds, soft. ABSENT: distended, guarding, mass, organolmegaly, rebound, tenderness Rectal exam: PRESENT: deferred Extremities exam: PRESENT: full ROM, tenderness. ABSENT: calf tenderness, clubbing, pedal edema Musculoskeletal exam: PRESENT: full ROM Neurological exam: PRESENT: alert, awake, oriented to person, oriented to place , oriented to time, oriented to situation, CN II-XII grossly intact. ABSENT: motor sensory deficit Psychiatric exam: PRESENT: appropriate affect, normal mood. ABSENT: homicidal ideation, suicidal ideation Skin exam: PRESENT: dry, intact, warm. ABSENT: cyanosis, rash Results Laboratory Results: 05/19/17 04:54 05/19/17 04:54 Impressions: Head CT 05/17/17 00:00 IMPRESSION: NORMAL BRAIN CT WITHOUT CONTRAST. EVIDENCE OF ACUTE STROKE: NO. Knee X-Ray 05/17/17 14:49 IMPRESSION: NEGATIVE STUDY OF THE LEFT KNEE. NO RADIOGRAPHIC EVIDENCE OF ACUTE INJURY. Femur X-Ray 05/19/17 00:00 IMPRESSION: No acute fracture Qualifiers - * PATEINT BEING DISCHARGED WITH ANY OF THE FOLLOWING DIAGNOSIS?: No Plan Time Spent: Greater than 30 Minutes
[2017-05-20] MEDS ORDERED: METHYLPREDNISOLONE INJ 1000 MG VIAL IV ONE (11:30)
[2017-05-20 11:39] VITALS: BP 116/74
[2017-05-20] MEDS ORDERED: METHYLPREDNISOLONE SOD SUCC 1,000 MG in DEXTROSE 5%-WATER 100 ML IV ONE (13:30)
== END 2017-05-20 14:20 | disposition home health service (06) | DRG 60 ==
LOC: ER 11:26 → INTOOBSV 18:20 → OBSVTOIN 18:20 → EH 18:20 → 4W 19:45
PROVIDERS: ADMIT Emergency Medicine; ATTEND Emergency Medicine
DX: G35 Multiple sclerosis (principal); W18.30XA Fall on same level, unspecified, initial encounter; I10 Essential (primary) hypertension; E03.9 Hypothyroidism, unspecified; M25.562 Pain in left knee; M25.561 Pain in right knee; E66.01 Morbid (severe) obesity due to excess calories; E83.52 Hypercalcemia; Z68.34 Body mass index [BMI] 34.0-34.9, adult; E11.65 Type 2 diabetes mellitus with hyperglycemia; J44.9 Chronic obstructive pulmonary disease, unspecified; M47.892 Other spondylosis, cervical region; D64.9 Anemia, unspecified; F40.240 Claustrophobia; Y92.009 Unspecified place in unspecified non-institutional (private) residence as the place of occurrence of the external cause; Z91.81 History of falling; Z87.891 Personal history of nicotine dependence; Z79.82 Long term (current) use of aspirin; Z79.899 Other long term (current) drug therapy; Z88.6 Allergy status to analgesic agent
CPT/HCPCS: 36415; 70450; 80053; 80061; 81001; 82962; 83036; 83735; 84439; 84443; 85025; 85652; 96374; 99285; G0379; J1815; J2930; J7120

== ENCOUNTER 2017-11-15 13:02 | Inpatient (IN) | payer OTHER ==
--- NOTE | 2017-11-15 13:29 | ER Document Report ---
ED Cardiac - General Chief Complaint: Chest Pain Stated Complaint: CHEST PAIN Time Seen by Provider: 11/15/17 13:12 Mode of Arrival: Ambulatory Information source: Patient Notes: Patient presents complaining of a 2-3 week history of intermittent chest pain that he describes as a tightness. Patient states that he has had multiple falls over the past 2 weeks. Patient complains of dizziness with occasional nausea and vomiting. Patient denies any vomiting today. Patient denies any cough symptoms. Patient denies any diarrhea. Patient denies any changes in his medications recently. TRAVEL OUTSIDE OF THE [place] IN LAST 30 DAYS: No - HPI Patient complains to provider of: Chest tightness Chest pain location: Other - Left upper chest Quality of pain: Tightness Pain level currently: 3 Cardiac risk factors: Diabetes, Hypertension. denies: Smoker Associated symptoms: Fatigue, Shortness of breath, Weakness. denies: Abdominal pain, Back pain, Heartburn Exacerbated by: Denies Relieved by: Nothing - Related Data Allergies/Adverse Reactions: oxycodone Adverse Reaction (Severe, Verified 05/17/17 13:05) addiction codeine Adverse Reaction (Verified 05/17/17 13:05) Abnormal behavior Past Medical History - General Information source: Patient - Social History Smoking Status: Never Smoker Frequency of alcohol use: None Drug Abuse: None Lives with: Friend Family History: Reviewed & Not Pertinent - Medical History Medical History: Other - Past Medical History Cardiac Medical History: Reports: Hx Hypertension - ON MEDS Denies: Hx Coronary Artery Disease, Hx Heart Attack Pulmonary Medical History: Reports: Hx COPD - POSSIBLY, PT UNSURE Denies: Hx Asthma, Hx Bronchitis, Hx Pneumonia Neurological Medical History: Denies: Hx Cerebrovascular Accident, Hx Seizures Endocrine Medical History: Reports: Hx Diabetes Mellitus Type 2, Hx Hypothyroidism Renal/ Medical History: Denies: Hx Peritoneal Dialysis Musculoskeletal Medical History: Reports Hx Arthritis - NECK, Reports Hx Gout, Reports Hx Multiple Sclerosis Psychiatric Medical History: Denies: Hx Depression Past Surgical History: Reports: Hx Orthopedic Surgery - Immunizations Hx Diphtheria, Pertussis, Tetanus Vaccination: No Review of Systems - Review of Systems Constitutional: Weakness. denies: Fever EENT: No symptoms reported Cardiovascular: Chest pain, Dizziness Respiratory: Short of breath. denies: Cough Gastrointestinal: No symptoms reported. denies: Abdominal pain, Diarrhea, Nausea, Vomiting Genitourinary: No symptoms reported. denies: Dysuria, Flank pain Male Genitourinary: No symptoms reported Musculoskeletal: No symptoms reported. denies: Back pain Skin: No symptoms reported Hematologic/Lymphatic: No symptoms reported Neurological/Psychological: No symptoms reported Physical Exam - Vital signs Vitals: Temp Pulse Resp BP Pulse Ox 98.2 F 55 L 16 95/56 L 100 11/15/17 13:20 11/15/17 13:20 11/15/17 13:20 11/15/17 13:20 11/15/17 13:20 - General General appearance: Appears well, Alert In distress: None - HEENT Head: Normocephalic Eyes: Normal Conjunctiva: Normal Nasal: Normal Mouth/Lips: Normal Mucous membranes: Normal Pharynx: Normal Neck: Normal, Supple. No: Lymphadenopathy - Respiratory Respiratory status: No respiratory distress Chest status: Pain on movement Breath sounds: Normal Chest palpation: Tender - Cardiovascular Rhythm: Regular Heart sounds: S1 appreciated, S2 appreciated Murmur: No - Abdominal Inspection: Obese Distension: No distension Bowel sounds: Normal Tenderness: Nontender Organomegaly: No organomegaly - Back Back: CVA tenderness - left - Extremities General upper extremity: Normal inspection, Normal ROM General lower extremity: Normal inspection, Normal ROM - Neurological Neuro grossly intact: Yes Cognition: Normal [place] Coma Scale Eye Opening: Spontaneous [place] Coma Scale Verbal: Oriented [place] Coma Scale Motor: Obeys Commands [place] Coma Scale Total: 15 - Psychological Associated symptoms: Normal affect, Normal mood - Skin Skin Temperature: Warm Skin Moisture: Dry Skin Color: Normal Course - Re-evaluation Re-evalutation: 11/15/17 15:[address] Orourke regarding patient presentation who advises consultation with hospitalist for admission. Patient without any history of any renal insufficiency. Patient today in acute renal failure. Patient does acknowledge that he has not been taking this much orally to drink or eat recently. Consulted with Dr. Grace who advises calling Dr. Burciaga for admission. 11/15/17 15:[address] Burciaga who agrees to accept patient to a medical floor admission. - Vital Signs Vital signs: Temp Pulse Resp BP Pulse Ox 98.2 F 55 L 15 122/87 H 97 11/15/17 13:20 11/15/17 13:20 11/15/17 17:51 11/15/17 17:51 11/15/17 17:51 - Laboratory Result Diagrams: 11/15/17 13:15 11/15/17 13:15 Laboratory results interpreted by me: 11/15/17 11/15/17 13:15 13:15 WBC 12.4 H RBC 3.95 L Hgb 11.8 L Hct 35.4 L RDW 14.9 H Absolute Neutrophils 9.4 H BUN 38 H Creatinine 2.86 H Est GFR ( Amer) 27 L Est GFR (Non-Af Amer) 22 L Glucose 164 H Direct Bilirubin 0.6 H Creatine Kinase 502 H Labs- Entire Visit 11/15/17 11/15/17 11/15/17 13:15 13:15 13:15 WBC 12.4 H RBC 3.95 L Hgb 11.8 L Hct 35.4 L MCV 90 MCH 29.7 MCHC 33.2 RDW 14.9 H Plt Count 298 Seg Neutrophils % 75.7 Lymphocytes % 13.9 Monocytes % 9.1 Eosinophils % 0.9 Basophils % 0.4 Absolute Neutrophils 9.4 H Absolute Lymphocytes 1.7 Absolute Monocytes 1.1 Absolute Eosinophils 0.1 Absolute Basophils 0.1 Sodium 139.5 Potassium 4.6 Chloride 101 Carbon Dioxide 23 Anion Gap 16 BUN 38 H Creatinine 2.86 H Est GFR ( Amer) 27 L Est GFR (Non-Af Amer) 22 L Glucose 164 H Calcium 9.9 Magnesium 1.8 Total Bilirubin 0.9 Direct Bilirubin 0.6 H Neonat Total Bilirubin Not Reportable Neonat Direct Bilirubin Not Reportable Neonat Indirect Bili Not Reportable AST 43 ALT 37 Alkaline Phosphatase 90 Creatine Kinase 502 H CK-MB (CK-2) 3.80 Troponin I < 0.012 Total Protein 7.7 Albumin 4.5 Lipase 119.1 - Diagnostic Test Radiology reviewed: Reports reviewed Discharge - Discharge Clinical Impression: Multiple sclerosis, Hx of fall Acute renal failure Qualifiers: Acute renal failure type: unspecified Qualified Code(s): N17.9 - Acute kidney failure, unspecified Chest pain Qualifiers: Chest pain type: unspecified Qualified Code(s): R07.9 - Chest pain, unspecified Condition: Stable Disposition: ADMITTED INPATIENT Admitting Provider: Hospitalist Unit Admitted: Medical Floor
[2017-11-15] MEDS ORDERED: NORMAL SALINE 1000 ML 1,000 ML IV ONE (13:40)
--- NOTE | 2017-11-15 13:48 | EKG REPORT ---
SEVERITY:- NORMAL ECG - SINUS RHYTHM : Confirmed by: Brianna Mckeon MD 15-Nov-2017 13:47:10
--- NOTE | 2017-11-15 14:10 | RADIOLOGY REPORT (SQ) ---
EXAM DESCRIPTION: CHEST SINGLE VIEW COMPLETED DATE/TIME: 11/15/2017 1:49 pm REASON FOR STUDY: cp COMPARISON: 05/02/2016 EXAM PARAMETERS: NUMBER OF VIEWS: One view. TECHNIQUE: Single frontal radiographic view of the chest acquired. RADIATION DOSE: NA LIMITATIONS: None. FINDINGS: LUNGS AND PLEURA: No opacities, masses or pneumothorax. No pleural effusion. MEDIASTINUM AND HILAR STRUCTURES: No masses. Contour normal. HEART AND VASCULAR STRUCTURES: Moderate stable cardiomegaly BONES: No acute findings. HARDWARE: None in the chest. OTHER: No other significant finding. IMPRESSION: Stable cardiomegaly TECHNICAL DOCUMENTATION: JOB ID: [id number] [employer]- All Rights Reserved Reading location - IP/workstation name: [email or web address]
[2017-11-15] MEDS ORDERED: RINGERS SOLUTION,LACTATED 1,000 ML IV ONE ×2 (14:41→15:22)
[2017-11-15 14:51] LABS: ABSOLUTE BASOPHILS # (AUTO) 0.1 10^3/uL (0.0-0.2); ABSOLUTE EOSINOPHILS # (AUTO) 0.1 10^3/uL (0.0-0.6); ABSOLUTE LYMPHOCYTES (AUTO) 1.7 10^3/uL (0.5-4.7); ABSOLUTE MONOCYTES (AUTO) 1.1 10^3/uL (0.1-1.4); ABSOLUTE NEUT (AUTO) 9.4 10^3/uL (1.7-8.2); BASOPHILS % (AUTO) 0.4 % (0-2); EOSINOPHILS % (AUTO) 0.9 % (0-6); HEMATOCRIT 35.4 % (37.9-51.0); HEMOGLOBIN 11.8 g/dL (13.5-17.0); LYMPHOCYTES % (AUTO) 13.9 % (13-45); MEAN CORPUSCULAR HEMOGLOBIN 29.7 pg (27.0-33.4); MEAN CORPUSCULAR HGB CONC 33.2 g/dL (32.0-36.0); MEAN CORPUSCULAR VOLUME 90 fl (80-97); MONOCYTES % (AUTO) 9.1 % (3-13); PLATELET COUNT 298 10^3/uL (150-450); RED BLOOD COUNT 3.95 10^6/uL (4.35-5.55); RED CELL DISTRIBUTION WIDTH 14.9 % (11.5-14.0); SEGMENTED NEUTROPHILS % (AUTO) 75.7 % (42-78); TOTAL CELLS COUNTED % (AUTO) 100 %; WHITE BLOOD COUNT 12.4 10^3/uL (4.0-10.5)
[2017-11-15 14:57] LABS: ALANINE AMINOTRANSFERASE 37 U/L (21-72); ALBUMIN 4.5 g/dL (3.5-5.0); ALKALINE PHOSPHATASE 90 U/L (38-126); ANION GAP 16 (5-19); ASPARTATE AMINO TRANSFERASE 43 U/L (17-59); BILIRUBIN,DIRECT 0.6 mg/dL (0.0-0.4); BILIRUBIN,TOTAL 0.9 mg/dL (0.2-1.3); BLOOD UREA NITROGEN 38 mg/dL (7-20); CALCIUM 9.9 mg/dL (8.4-10.2); CARBON DIOXIDE 23 mmol/L (22-30); CHLORIDE 101 mmol/L (98-107); CREATINE KINASE 502 U/L (55-170); GLUCOSE 164 mg/dL (75-110); LIPASE 119.1 U/L (23-300); POTASSIUM 4.6 mmol/L (3.6-5.0); SODIUM 139.5 mmol/L (137-145); TOTAL PROTEIN 7.7 g/dL (6.3-8.2)
[2017-11-15 15:10] LABS: TROPONIN I < 0.012 ng/mL
[2017-11-15] MEDS ORDERED: RINGERS SOLUTION,LACTATED 1,000 ML IV PRN (16:07)
[2017-11-15] MEDS ORDERED: GLUCAGON,HUMAN RECOMB 1 MG INJ IM PRN (16:16)
[2017-11-15] MEDS ORDERED: DEXTROSE 40% GEL 15 GM TUBE PO PRN ×2 (16:16)
[2017-11-15] MEDS ORDERED: INSULIN LISPRO 100 UNIT/ML 3 ML VIAL SUBCUT PRN (16:16)
[2017-11-15] MEDS ORDERED: DEXTROSE 50%-WATER 25 GM/50 ML DISP.SYRIN IV PRN ×2 (16:16)
[2017-11-15 17:32] LABS: APPEARANCE,URINE SLIGHTLY-CLOUDY; BILIRUBIN,URINE NEGATIVE (NEGATIVE); COLOR,URINE YELLOW; GLUCOSE, URINE NEGATIVE (NEGATIVE); KETONES,URINE NEGATIVE (NEGATIVE); LEUKOCYTE ESTERASE,URINE NEGATIVE (NEGATIVE); NITRITE,URINE NEGATIVE (NEGATIVE); PROTEIN,URINE 30 mg/dL (NEGATIVE); URINE SPECIFIC GRAVITY 1.016; UROBILINOGEN,URINE NEGATIVE mg/dL (<2.0)
[2017-11-15] MEDS ORDERED: METOPROLOL TARTRATE 50 MG TABLET PO SCH (18:00)
--- NOTE | 2017-11-15 19:32 | PDOC H&P ---
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 He said his oral intake has not been very good over the past week or so. He said he does not drink a lot of water at baseline anyway. He said he was outside and 1 of the linemen who is working on fixing the power lines told him that he did not look very good, and gave him a Gatorade to drink. Patient said he drank the Gatorade and he just felt really weird all over and so he wound up in the hospital. Here he was determined to have an acute kidney injury with a significant elevation in his creatinine. He did have any substantial electrolyte disturbances, but his blood did seem hemoconcentrated he is likely dehydrated. He also complained of some reproducible chest pain in his left side of his chest is tender to palpation. He denies knowing of any specific injury. Past Medical History Cardiac Medical History: Reports: Hypertension - ON MEDS Denies: Coronary Artery Disease, Myocardial Infarction Pulmonary Medical History: Reports: Chronic Obstructive Pulmonary Disease (COPD ) - POSSIBLY, PT UNSURE Denies: Asthma, Bronchitis, Pneumonia Neurological Medical History: Denies: Seizures Endocrine Medical History: Reports: Diabetes Mellitus Type 2, Hypothyroidism Musculoskeltal Medical History: Reports: Arthritis - NECK, Gout Psychiatric Medical History: Denies: Depression Hematology: Reports: Anemia Past Surgical History Past Surgical History: Reports: Orthopedic Surgery Social History Lives with: Friend Smoking Status: Never Smoker Frequency of Alcohol Use: Rare Hx Recreational Drug Use: No Drugs: None Hx Prescription Drug Abuse: No Family History Family History: Reviewed & Not Pertinent Parental Family History Reviewed: No - Noncontributory Children Family History Reviewed: NA Sibling(s) Family History Reviewed.: NA - Noncontributory Medication/Allergy Allergies/Adverse Reactions: oxycodone Adverse Reaction (Severe, Verified 05/17/17 13:05) addiction codeine Adverse Reaction (Verified 05/17/17 13:05) Abnormal behavior Review of Systems Review of Systems: 10 point review of systems was conducted with the patient was negative except as noted above the HPI Physical Exam Vital Signs: Temp Pulse Resp BP Pulse Ox 98.2 F 55 L 19 113/73 96 11/15/17 13:20 11/15/17 13:20 11/15/17 19:11 11/15/17 19:11 11/15/17 19:11 Intake & Output 11/14/17 11/15/17 11/16/17 06:59 06:59 06:59 Intake Total 1000 Balance 1000 General appearance: PRESENT: no acute distress, cooperative, disheveled, morbidly obese Head exam: PRESENT: atraumatic, normocephalic Eye exam: PRESENT: conjunctiva pink, EOMI, PERRLA. ABSENT: nystagmus, scleral icterus Ear exam: PRESENT: normal external ear exam Mouth exam: PRESENT: dry mucosa, neck supple Teeth exam: PRESENT: poor dentation Throat exam: ABSENT: tonsillar erythema, tonsillar exudate Neck exam: PRESENT: full ROM. ABSENT: carotid bruit, JVD, lymphadenopathy, thyromegaly Respiratory exam: PRESENT: chest wall tenderness - The entire left side of his chest was extremely tender to palpation and he pushed my hand away when I palpated on it, clear to auscultation gary, symmetrical, unlabored. ABSENT: accessory muscle use, crackles, prolonged expiratory phas, rales, rhonchi, stridor, tachypnea, wheezes Cardiovascular exam: PRESENT: RRR, +S1, +S2. ABSENT: diastolic murmur, systolic murmur Pulses: PRESENT: +2 pedal pulses bilateral Vascular exam: PRESENT: normal capillary refill GI/Abdominal exam: PRESENT: distended - His belly looks distended but I think this is just his body habitus, normal bowel sounds, soft. ABSENT: ascites, firm , guarding, rebound, tenderness Extremities exam: ABSENT: calf tenderness, clubbing, joint swelling, pedal edema , tenderness Musculoskeletal exam: PRESENT: normal inspection. ABSENT: ambulatory - Says he gets around much time in electric motorized chair because of his MS, deformity, tenderness Neurological exam: PRESENT: alert, awake, oriented to person, oriented to place , oriented to time, CN II-XII grossly intact Psychiatric exam: PRESENT: appropriate affect, normal mood Skin exam: PRESENT: dry, warm Results Laboratory Results: 11/15/17 17:09 Urine Color YELLOW Urine Appearance SLIGHTLY-CLOUDY Urine pH 5.0 Ur Specific [place] 1.016 Urine Protein 30 H Urine Glucose (UA) NEGATIVE Urine Ketones NEGATIVE Urine Blood NEGATIVE Urine Nitrite NEGATIVE Ur Leukocyte Esterase NEGATIVE Urine WBC (Auto) 2 Urine RBC (Auto) 1 Impressions: Chest X-Ray 11/15/17 13:27 IMPRESSION: Stable cardiomegaly Assessment & Plan - Diagnosis (1) Dehydration Is this a current diagnosis for this admission?: Yes Plan: We will hydrate with IV fluids. (2) Acute renal failure Qualifiers: Acute renal failure type: unspecified Qualified Code(s): N17.9 - Acute kidney failure, unspecified Is this a current diagnosis for this admission?: Yes Plan: I suspect there is a component of ATN. I have adjusted some of his medications , including his metformin. I suspect he was getting a little dehydrated and his creatinine was probably going up, and him taking his metformin sort of pushed him over the edge. I have taken him off of his metformin and put him on a sliding scale. We will give him some IV fluids and hydrate him. We will avoid nephrotoxic medications. We will continue to monitor his creatinine. We will monitor urine output electrolytes. - Time Time Spent: 50 to 70 Minutes - Inpatient Certification Medical Necessity: Need For IV Fluids, Risk of Complication if Not Cared For in Hospital
[2017-11-15] MEDS ORDERED: HYDROCODONE/ACETAMINOPHEN 10-325 MG TABLET PO SCH (22:00)
[2017-11-15] MEDS: HEPARIN SOD (PORCINE) 5,000 UNIT/ML 1 ML SYRINGE SUBCUT SCH (22:49)
[2017-11-16] MEDS ORDERED: GABAPENTIN 400 MG CAPSULE PO PRN (05:30)
[2017-11-16] MEDS ORDERED: LEVOTHYROXINE SODIUM 0.15 MG TABLET PO SCH (06:00)
[2017-11-16 06:03] LABS: ABSOLUTE EOSINOPHILS # (AUTO) 0.1 10^3/uL (0.0-0.6); ABSOLUTE MONOCYTES (AUTO) 0.7 10^3/uL (0.1-1.4); BASOPHILS % (AUTO) 0.4 % (0-2); EOSINOPHILS % (AUTO) 1.2 % (0-6); HEMATOCRIT 32.1 % (37.9-51.0); LYMPHOCYTES % (AUTO) 25.8 % (13-45); MEAN CORPUSCULAR HGB CONC 34.2 g/dL (32.0-36.0); MEAN CORPUSCULAR VOLUME 88 fl (80-97); MONOCYTES % (AUTO) 8.3 % (3-13); PLATELET COUNT 193 10^3/uL (150-450); RED BLOOD COUNT 3.66 10^6/uL (4.35-5.55); RED CELL DISTRIBUTION WIDTH 14.9 % (11.5-14.0); SEGMENTED NEUTROPHILS % (AUTO) 64.3 % (42-78); TOTAL CELLS COUNTED % (AUTO) 100 %; WHITE BLOOD COUNT 7.8 10^3/uL (4.0-10.5)
[2017-11-16 06:30] LABS: ANION GAP 8 (5-19); BLOOD UREA NITROGEN 23 mg/dL (7-20); CALCIUM 9.3 mg/dL (8.4-10.2); CARBON DIOXIDE 28 mmol/L (22-30); CHLORIDE 101 mmol/L (98-107); GLUCOSE 142 mg/dL (75-110); POTASSIUM 3.9 mmol/L (3.6-5.0)
[2017-11-16] MEDS: HEPARIN SOD (PORCINE) 5,000 UNIT/ML 1 ML SYRINGE SUBCUT SCH (06:42)
[2017-11-16] MEDS ORDERED: HYDROCODONE/ACETAMINOPHEN 10-325 MG TABLET PO PRN ×2 (09:02→10:50)
[2017-11-16] MEDS ORDERED: ASPIRIN 81 MG TABLET, ENT COATED PO SCH (10:00)
[2017-11-16] MEDS ORDERED: GABAPENTIN 400 MG CAPSULE PO SCH (10:00)
[2017-11-16] MEDS ORDERED: METHOCARBAMOL 750 MG TABLET PO SCH (10:00)
[2017-11-16] MEDS ORDERED: METOPROLOL TARTRATE 25 MG TABLET PO SCH (10:00)
[2017-11-16] MEDS ORDERED: METFORMIN HCL 500 MG TABLET PO SCH (10:00)
[2017-11-16 10:44] VITALS: BP 150/60
--- NOTE | 2017-11-16 12:51 | PDOC DISCHARGE SUMMARY ---
General - Admit/Disc Date/PCP Admission Date/Primary Care Provider: 11/15/17 15:46 Discharge Date: 11/16/17 - Discharge Diagnosis (1) Dehydration Is this a current diagnosis for this admission?: Yes Summary: Resolved with IV fluids. Good urine output. (2) Acute renal failure Is this a current diagnosis for this admission?: Yes Summary: Resolved quickly with IV fluids. His metformin was held but it can now be resumed. - Additional Information Resuscitation Status: Full Code Discharge Diet: Diabetic Discharge Activity: Supervised Activity Home Medications: Aspirin [Ecotrin 81 mg EC Tablet] 162 mg PO Q12 11/15/17 Gabapentin [Neurontin] 1,600 mg PO Q12 11/15/17 Gabapentin [Neurontin] 800 mg PO QPMP PRN 11/15/17 Hydrocodone/Acetaminophen [Hydrocodone-Acetamin 10-325 mg] 2 tab PO Q12HP PRN Metformin HCl [Glucophage 500 mg Tablet] 1,000 mg PO Q12 11/15/17 Methocarbamol [Robaxin 750 mg Tablet] 1,500 mg PO Q12 11/15/17 Metoprolol Tartrate [Lopressor 25 mg Tablet] 25 mg PO Q12 11/15/17 History of Present Illness History of Present Illness: NIMCO 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 He said his oral intake has not been very good over the past week or so. He said he does not drink a lot of water at baseline anyway. He said he was outside and 1 of the linemen who is working on fixing the power lines told him that he did not look very good, and gave him a Gatorade to drink. Patient said he drank the Gatorade and he just felt really weird all over and so he wound up in the hospital. Here he was determined to have an acute kidney injury with a significant elevation in his creatinine. He did have any substantial electrolyte disturbances, but his blood did seem hemoconcentrated he is likely dehydrated. He also complained of some reproducible chest pain in his left side of his chest is tender to palpation. He denies knowing of any specific injury. Hospital Course Hospital Course: Some of his medications were held and he was given IV fluids. His creatinine responded quickly and returned to the normal range this morning. His urine output has been excellent. He had a bowel movement this morning and ambulated independently to and from the bathroom with the use of a walker. He said he gets around some like that at home but he sometimes uses a wheelchair. He has a roommate and he has a private caregiver that comes 3 times a week. His labs and examination were reassuring and he was discharged in good condition. Physical Exam Vital Signs: Temp Pulse Resp BP Pulse Ox 98.2 F 74 20 150/60 H 100 11/16/17 10:39 11/16/17 10:39 11/16/17 10:39 11/16/17 10:39 11/16/17 10:39 Intake & Output 11/15/17 11/16/17 11/17/17 06:59 06:59 06:59 Intake Total 1000 1000 Balance 1000 1000 Weight 113.4 kg General appearance: PRESENT: no acute distress, cooperative, disheveled, morbidly obese Respiratory exam: PRESENT: chest wall tenderness - The entire left side of his chest was covering machine tender to palpation, clear to auscultation gary, symmetrical, unlabored. ABSENT: accessory muscle use, crackles, prolonged expiratory phase, rales, rhonchi, stridor, tachypnea, wheezes Cardiovascular exam: PRESENT: RRR, +S1, +S2. ABSENT: diastolic murmur, systolic murmur Pulses: PRESENT: +2 pedal pulses bilateral Vascular exam: PRESENT: normal capillary refill GI/Abdominal exam: PRESENT: distended - His belly looks distended but I think this is just his body habitus, normal bowel sounds, soft. ABSENT: ascites, firm , guarding, rebound, tenderness Extremities exam: ABSENT: calf tenderness, clubbing, joint swelling, pedal edema , tenderness Musculoskeletal exam: PRESENT: normal inspection, ambulates slowly with use of a walker. ABSENT: deformity, tenderness Neurological exam: PRESENT: alert, awake, oriented to person, oriented to place , oriented to time, CN II-XII grossly intact Psychiatric exam: PRESENT: appropriate affect, normal mood Skin exam: PRESENT: dry, warm Results Laboratory Results: 11/16/17 05:17 11/16/17 05:17 11/15/17 11/16/17 11/16/17 17:09 05:17 05:17 WBC 7.8 RBC 3.66 L Hgb 11.0 L Hct 32.1 L MCV 88 MCH 30.0 MCHC 34.2 RDW 14.9 H Plt Count 193 Seg Neutrophils % 64.3 Lymphocytes % 25.8 Monocytes % 8.3 Eosinophils % 1.2 Basophils % 0.4 Absolute Neutrophils 5.0 Absolute Lymphocytes 2.0 Absolute Monocytes 0.7 Absolute Eosinophils 0.1 Absolute Basophils 0.0 Sodium 137.0 Potassium 3.9 Chloride 101 Carbon Dioxide 28 Anion Gap 8 BUN 23 H Creatinine 0.75 Est GFR ( Amer) > 60 Est GFR (Non-Af Amer) > 60 Glucose 142 H Calcium 9.3 Urine Color YELLOW Urine Appearance SLIGHTLY-CLOUDY Urine pH 5.0 Ur Specific [place] 1.016 Urine Protein 30 H Urine Glucose (UA) NEGATIVE Urine Ketones NEGATIVE Urine Blood NEGATIVE Urine Nitrite NEGATIVE Ur Leukocyte Esterase NEGATIVE Urine WBC (Auto) 2 Urine RBC (Auto) 1 Impressions: Chest X-Ray 11/15/17 13:27 IMPRESSION: Stable cardiomegaly Qualifiers - * PATIENT BEING DISCHARGED WITH ANY OF THE FOLLOWING DIAGNOSIS: No
== END 2017-11-16 11:12 | disposition home or self-care (01) | DRG 683 ==
LOC: ER 13:02 → EH 15:46 → 4N 23:30
PROVIDERS: ADMIT Emergency Medicine; ATTEND Emergency Medicine
DX: N17.9 Acute kidney failure, unspecified (principal); Z68.41 Body mass index [BMI] 40.0-44.9, adult; E86.0 Dehydration; E11.9 Type 2 diabetes mellitus without complications; E03.9 Hypothyroidism, unspecified; M10.9 Gout, unspecified; E66.01 Morbid (severe) obesity due to excess calories; Z79.82 Long term (current) use of aspirin; Z79.84 Long term (current) use of oral hypoglycemic drugs
CPT/HCPCS: 36415; 71045; 80048; 80053; 81001; 82550; 82553; 82962; 83690; 83735; 84484; 85025; 93005; 93010; 96360; 96361; 99285; J1644; J1815; J3490